=== PATIENT | male | born 1935 | race Caucasian/White ===

== ENCOUNTER 2017-04-29 17:54 | Emergency (ER) | payer MEDICARE, OTHER ==
[~2017-04-29] VITALS: Ht 182.9 cm; Wt 87.5 kg
[~2017-04-29 17:54] MED LIST: AMIODARONE HCL200 MG PO; ASPIR 8181 MG; ASPIR 8181 MG PO; ATORVASTATIN CA20 MG PO; DILANTIN50 MG PO; FUROSEMIDE40 MG PO; LISINOPRIL-HCT1 EAC2 PO; LISINOPRIL10 MG PO; METOPROLOL SUCC25 MG PO; METOPROLOL TART25 MG PO; MINOCYCLINE HCL50 MG PO; MIRTAZAPINE15 MG PO; MULTI-VITAMIN1 EACH PO; MULTIVITAMINS1 EAC7; PLAVIX75 MG PO; SERTRALINE HCL50 MG PO; TYLENOL WITH C1 EACH PO; WARFARIN SODIUM5 MG; XARELTO10 MG PO; XARELTO20 MG PO
--- NOTE | 2017-04-29 18:56 | Diagnostic Imaging Report ---
PROCEDURE:CT PELVIS WITHOUT CONTRAST COMPARISON:None. INDICATIONS:FALL, RIGHT HIP PAIN TECHNIQUE:CT images were created without intravenous contrast. FINDINGS: PELVIC NODES:Normal. PELVIC ORGANS:3.9 cm and 1.7 cm simple cyst in the inferior pole of the right kidney. Prostate measures 5.8 cm in transverse dimension. Mild atherosclerotic calcifications in abdominal aorta. Bilateral common iliac arteries are mildly enlarged measuring 1.9 cm on the right and 2.6 cm on the left. BONES:Diffuse osteopenia. Mild multilevel disc space narrowing. Moderate at L5-S1. Posterior disc osteophyte at L3-L4. Grade 1 anterolisthesis of L4 on L5 secondary to facet arthropathy. Mild degenerative changes in bilateral SI joints. OTHER:Unremarkable. CONCLUSION: No fractures. Degenerative changes as described above. Dictated by: El Tian M.D. on 04/29/2017 at 19:04 Electronically approved by: El Tian M.D. on 04/29/2017 at 19:04
[2017-04-29 22:50] LABS: BASOPHILS % 0.4 % (0.0-1.0); EOSINOPHILS # (AUTO) 0.2 (0.0-0.4); EOSINOPHILS % 4.2 % (0.0-6.0); HEMATOCRIT 36.2 % (38.2-49.6); HEMOGLOBIN 12.2 g/dL (14.0-18.0); LYMPHOCYTES # (AUTO) 1.8 (1.0-3.2); LYMPHOCYTES % 39.5 % (18.0-39.1); MEAN CORPUSCULAR HEMOGLOBIN 31.3 pg (28-32); MEAN CORPUSCULAR HGB CONC 33.7 g/dL (31-35); MEAN CORPUSCULAR VOLUME 92.8 fL (81-99); MONOCYTES # (AUTO) 0.5 (0.2-0.8); MONOCYTES % 10.1 % (4.4-11.3); NEUTROPHILS # (AUTO) 2.1 (2.1-6.9); NEUTROPHILS % 45.4 % (38.7-80.0); PLATELET COUNT 132 x10e3/uL (140-360); RED CELL DISTRIBUTION WIDTH 14.3 % (11.7-14.4)
[2017-04-29 22:57] LABS: INR 2.02; PROTHROMBIN TIME 23.9 seconds (11.9-14.5)
[2017-04-29 22:58] LABS: PARTIAL THROMBOPLASTIN TIME 39.8 seconds (23.8-35.5)
[2017-04-29 23:02] LABS: ANION GAP 14.1 mmol/L (8-16); CALCIUM 8.9 mg/dL (8.4-10.2); CREATININE, SERUM 1.54 mg/dL (0.72-1.25); POTASSIUM 4.1 mmol/L (3.5-5.1)
== END 2017-04-29 23:56 | disposition home or self-care (01) ==
LOC: ER 17:54
DX: S70.01XA Contusion of right hip, initial encounter (principal); W06.XXXA Fall from bed, initial encounter; Y93.84 Activity, sleeping; Y92.003 Bedroom of unspecified non-institutional (private) residence as the place of occurrence of the external cause
CPT/HCPCS: 36415; 72192; 80048; 85025; 85610; 85730; 99283

== ENCOUNTER → 2017-07-31 | Outpatient (CLI) | payer MEDICARE, OTHER ==
--- NOTE | 2017-07-31 17:12 | Diagnostic Imaging Report ---
PROCEDURE:X-RAY RIGHT FOOT, COMPLETE COMPARISON:None. INDICATIONS:FOOT PAIN FINDINGS: There are no fractures, dislocations, lytic or blastic lesions. The bones are well-mineralized. The soft-tissues are unremarkable. Hammertoe deformities. Hallux valgus deformity. CONCLUSION: Hammertoe deformities. Dictated by: El Tian M.D. on 07/31/2017 at 17:12 Electronically approved by: El Tian M.D. on 07/31/2017 at 17:12
--- NOTE | 2017-07-31 17:16 | Diagnostic Imaging Report ---
PROCEDURE:X-RAY RIGHT ANKLE, COMPLETE TECHNIQUE:3 views of the right ankle. INDICATION:Ankle pain. COMPARISON:None. FINDINGS: Diffuse soft tissue swelling of the right ankle. No fractures or dislocations. No joint effusion. CONCLUSION: Soft tissue swelling of the right ankle. No acute osseous abnormalities. Dictated by: El Tian M.D. on 07/31/2017 at 17:17 Electronically approved by: El Tian M.D. on 07/31/2017 at 17:17
== END ==
LOC: RAD 16:26
DX: M25.571 Pain in right ankle and joints of right foot (principal); Z87.828 Personal history of other (healed) physical injury and trauma
CPT/HCPCS: 93971

== ENCOUNTER → 2017-11-26 | Outpatient (CLI) | payer MEDICARE, OTHER ==
--- NOTE | 2017-11-26 12:32 | Diagnostic Imaging Report ---
PROCEDURE:US RETROPERITONEAL ( KIDNEY ). COMPARISON:Renal ultrasound 08/11/2014. INDICATIONS:Chronic Kidney Disease Stage 3 TECHNIQUE: Tracy-scale and color sonographic images of the bilateral kidneys and bladder where obtained in transverse and longitudinal planes. FINDINGS: RIGHT KIDNEY: 11 x 5.1 x 5.9 cm, cortex 1.2 cm Cysts: * Inferior pole 3.9 x 3.1 x 4 cm simple cyst (previously 3.9 x 3.1 x 3.5 cm) * Inferior pole 1.4 x 1.6 x 1.6 cm simple cyst (previously 1.3 x 1.2 x 1.2 cm) Solid masses: None Stones: None Hydronephrosis: None Echogenicity: Increased LEFT KIDNEY: 10.6 x 5.3 x 5.2 cm, cortex 1.5 cm Cysts: * Inferior pole 0.9 x 0.8-0.9 cm simple cyst. Solid masses: None Stones: None Hydronephrosis: None Echogenicity: Increased Bladder: Trabeculations. Prevoid volume: 228 cc Postvoid volume: 139 cc Prostate: 5 x 3.8 x 4.8 cm (47 cc), enlarged. CONCLUSION: 1. Increased renal echogenicity suggestive of medical renal disease. 2. Simple renal cysts as above. 3. Post-void residuals within the bladder. 4. Enlarged prostate. 1. Dictated by: Gurinder Cr M.D. on 11/26/2017 at 12:38 Electronically approved by: Gurinder Cr M.D. on 11/26/2017 at 12:38
--- NOTE | 2017-11-26 12:33 | Diagnostic Imaging Report ---
PROCEDURE:US PELVIC (NON OB) SALAZAR OR F/U COMPARISON:None. INDICATIONS:Chronic Kidney Disease Stage 3 TECHNIQUE: Grayscale transverse and sagittal transabdominal images were obtained of the pelvis. FINDINGS: Please see same day renal ultrasound report. CONCLUSION: Please see same day renal ultrasound report. Dictated by: Gurinder Cr M.D. on 11/26/2017 at 12:39 Electronically approved by: Gurinder Cr M.D. on 11/26/2017 at 12:39
== END ==
LOC: US 10:38
PROVIDERS: ATTEND Internal Medicine Nephrology
DX: N18.3 Chronic kidney disease, stage 3 (moderate) (principal)
CPT/HCPCS: 76770; 76857

== ENCOUNTER → 2017-12-05 | Outpatient (CLI) | payer MEDICARE, OTHER | LOC: RAD 09:42 | PROVIDERS: ATTEND Internal Medicine | DX: I82.890 Acute embolism and thrombosis of other specified veins (principal) | CPT/HCPCS: 93306 ==

== ENCOUNTER 2019-03-22 09:41 | Inpatient (IN) | payer MEDICARE, OTHER ==
[~2019-03-22] VITALS: Ht 182.9 cm; Wt 93.9 kg
--- OUTSIDE RECORDS SUMMARY | 2019-03-22 09:45 | XMS REPORT ---
Author [facility] Address Unknown Phone Unavailable Care Team Providers Care Flower Maker Name Role Phone DANIELLE CRUZ Unavailable Unavailable TERRA KOCH Unavailable Unavailable Florentin BASSETT Unavailable Unavailable Problems This patient has no known problems. Allergies, Adverse Reactions, Alerts This patient has no known allergies or adverse reactions. Medications This patient has no known medications. Results Test Description Test Time Test Comments Text Results Atomic Results Result Comments US PELVIC (NON OB) SALAZAR OR F/U 2017-11-26 12:39:00 [place] [address] Patient Name: EZIO LASSITER E MR #: [id number] : 1935 Age/Sex: 81/M Req #: [id number] Adm Physician: Ordered by: DANIELLE CRUZ MD Report #: [id number] Location: US Room/Bed: Procedure: [id number] US/US PELVIC (NON OB) SALAZAR OR F/U Exam Date: Exam Time: REPORT STATUS: Signed PROCEDURE: US PELVIC (NON OB) SALAZAR OR F/U COMPARISON: None. INDICATIONS: Chronic Kidney Disease Stage 3 TECHNIQUE: Grayscale transverse and sagittal transabdominal images were obtained of the pelvis. FINDINGS: Please see same day renal ultrasound report. CONCLUSION: Please see same day renal ultrasound report. Dictated by: Gurinder Emery M.D. on 11/26/2017 at 12:39 Electronically approved by: Gurinder Emery M.D. on 11/26/2017 at 12:39 Dictated By: GURINDER EMERY MD 123 Transcribed By: SUSHIL on 11/26/17 123 COPY TO: DANIELLE CRUZ MD RENAL RETROPERITONEAL COMP 2017-11-26 12:38:00 [place] [address] Patient Name: EZIO LASSITER MR #: [id number] : 1935 Age/Sex: 81/M Req #: [id number] Adm Physician: Ordered by: DANIELLE CRUZ MD Report #: [id number] Location: Room/Bed: Procedure: [id number] US/US RENAL RETROPERITONEAL COMP Exam Date: Exam Time: REPORT STATUS: Signed PROCEDURE: US RETROPERITONEAL ( KIDNEY ). COMPARISON: Renal ultrasound 08/11/2014. INDICATIONS: Chronic Kidney Disease Stage 3 TECHNIQUE: Tracy- scale and color sonographic images of the bilateral kidneys and bladder where obtained in transverse and longitudinal planes. FINDINGS: RIGHT KIDNEY: 11 x 5.1 x 5.9 cm, cortex 1.2 cm Cysts: * Inferior pole 3.9 x 3.1 x 4 cm simple cyst (previously 3.9 x 3.1 x 3.5 cm) * Inferior pole 1.4 x 1.6 x 1.6 cm simple cyst (previously 1.3 x 1.2 x 1.2 cm) Solid masses: None Stones: None Hydronephrosis: None Echogenicity: Increased LEFT KIDNEY: 10.6 x 5.3 x 5.2 cm, cortex 1.5 cm Cysts: * Inferior pole 0.9 x 0.8-0.9 cm simple cyst. Solid masses: None Stones: None Hydronephrosis: None Echogenicity: Increased Bladder: Trabeculations. Prevoid volume: 228 cc Postvoid volume: 139 cc Prostate: 5 x 3.8 x 4.8 cm (47 cc), enlarged. CONCLUSION: 1. Increased renal echogenicity suggestive of medical renal disease. 2. Simple renal cysts as above. 3. Post-void residuals within the bladder. 4. Enlarged prostate. 1. Dictated by: Gurinder Emery M.D. on 11/26/2017 at 12:38 Electronically approved by: Gurinder Emery M.D. on 11/26/2017 at 12:38 Dictated By: GURINDER EMERY MD 1238 Transcribed By: SUSHIL on 11/26/17 1238 COPY TO: DANIELLE CRUZ MD FOOT RIGHT COMPLETE [place] [address] Patient Name: EZIO LASSITER MR #: [id number] : 1935 Age/Sex: 81/M Req #: [id number] Adm Physician: Ordered by: TERRA KOCH MD Report #: [id number] Location: [facility] Room/Bed: Procedure: [id number] DX/FOOT RIGHT COMPLETE Exam Date: Exam Time: REPORT STATUS: Signed PROCEDURE: X-RAY RIGHT FOOT, COMPLETE COMPARISON: None. INDICATIONS: FOOT PAIN FINDINGS: There are no fractures, dislocations, lytic or blastic lesions. The bones are well-mineralized. The soft-tissues are unremarkable. Hammertoe deformities. Hallux valgus deformity. CONCLUSION: Hammertoe deformities. Dictated by: Hosea Chambers M.D. on 07/31/2017 at 17:12 Electronically approved by: Hosea Chambers M.D. on 07/31/2017 at 17:12 Dictated By: HOSEA CHAMBERS MD 11 Transcribed By: SUSHIL on 07/31/171711 COPY TO: TERRA KOCH MD ANKLE 3 + VIEWS RIGHT [facility] [address] [place] [address] Patient Name: EZIO LASSITER MR #: [id number] : 1935 Age/Sex: 81/M Req #: [id number] Adm Physician: Ordered by: TERRA KOCH MD Report #: [id number] Location: [facility] Room/Bed: Procedure: [id number] DX/ANKLE 3 + VIEWS RIGHT Exam Date: Exam Time: REPORT STATUS: Signed PROCEDURE: X-RAY RIGHT ANKLE, COMPLETE TECHNIQUE: 3 views of the right ankle. INDICATION: Ankle pain. COMPARISON: None. FINDINGS: Diffuse soft tissue swelling of the right ankle. No fractures or dislocations. No joint effusion. CONCLUSION: Soft tissue swelling of the right ankle. No acute osseous abnormalities. Dictated by: Hosea Chambers M.D. on 07/31/2017 at 17:17 Electronically approved by: Hosea Chambers M.D. on 07/31/2017 at 17:17 Dictated By: HOSEA CHAMBERS MD 16 Transcribed By: SUSHIL on 07/31/171716 COPY TO: TERRA KOCH MD CT PELVIS WO [facility] [address] [place] [address] Patient Name: EZIO LASSITER MR #: [id number] : 1935 Age/Sex: 81/M Req #: [id number] Adm Physician: Ordered by: SAADIA BASSETT MD Report #: [id number] Location: Room/Bed: Procedure: [id number] CT/CT PELVIS WO Exam Date: 04/29/17 Exam Time: 1834 REPORT STATUS: Signed PROCEDURE: CT PELVIS WITHOUT CONTRAST COMPARISON: None. INDICATIONS: FALL, RIGHT HIP PAIN TECHNIQUE: CT images were created without intravenous contrast. FINDINGS: PELVIC NODES: Normal. PELVIC ORGANS: 3.9 cm and 1.7 cm simple cyst in the inferior pole of the right kidney. Prostate measures 5.8 cm in transverse dimension. Mild atherosclerotic calcifications in abdominal aorta. Bilateral common iliac arteries are mildly enlarged measuring 1.9 cm on the right and 2.6 cm on the left. BONES: Diffuse osteopenia. Mild multilevel disc space narrowing. Moderate at L5-S1. Posterior disc osteophyte at L3-L4. Grade 1 anterolisthesis of L4 on L5 secondary to facet arthropathy. Mild degenerative changes in bilateral SI joints. OTHER: Unremarkable. CONCLUSION: No fractures. Degenerative changes as described above. Dictated by: Hosea Chambers M.D. on 04/29/2017 at 19:04 Electronically approved by: Hosea Chambers M.D. on 04/29/2017 at 19:04 Dictated By: HOSEA CHAMBERS MD 03 Transcribed By: SUSHIL on 04/29/171903 COPY TO: SAADIA BASSETT MD
[2019-03-22] MEDS ORDERED: SODIUM CHLORIDE 0.9% 1000ML 1,000 ML IV STA (09:56)
[2019-03-22] MEDS ORDERED: SODIUM CHLORIDE 0.9% 1000ML 500 ML IV STA (09:56)
[2019-03-22] MEDS ORDERED: FAMOTIDINE 20 MG/2 ML VIAL IV STA (09:56)
[2019-03-22] MEDS ORDERED: AZITHROMYCIN 500MG/SOD CHL 0.9% 250ML BAG IV SCH (10:15)
[2019-03-22] MEDS ORDERED: CEFTRIAXONE SOD 1 GM/NS 50 ML 50 ML IV ONE (10:15)
[2019-03-22] MEDS ORDERED: CEFTRIAXONE SOD 1 GRAM/0.9% SOD CHL 50ML BAG IV SCH (10:15)
[2019-03-22 10:30] LABS: BASOPHILS % 0.1 % (0.0-1.0); HEMATOCRIT 39.8 % (38.2-49.6); HEMOGLOBIN 13.5 g/dL (14.0-18.0); LYMPHOCYTES # (AUTO) 0.9 (1.0-3.2); LYMPHOCYTES % 5.2 % (18.0-39.1); MEAN CORPUSCULAR HGB CONC 33.9 g/dL (31-35); MEAN CORPUSCULAR VOLUME 91.5 fL (81-99); MONOCYTES # (AUTO) 0.7 (0.2-0.8); NEUTROPHILS # (AUTO) 14.9 (2.1-6.9); NEUTROPHILS % 88.7 % (38.7-80.0); PLATELET COUNT 155 x10e3/uL (140-360); RED BLOOD COUNT 4.35 x10e6/uL (4.3-5.7); RED CELL DISTRIBUTION WIDTH 14.8 % (11.7-14.4)
[2019-03-22 10:35] LABS: BILIRUBIN,URINE NEGATIVE (NEGATIVE); CLARITY,URINE CLEAR (CLEAR); COLOR,URINE YELLOW (YELLOW); KETONES,URINE TRACE (NEGATIVE); LEUKOCYTE ESTERASE ,URINE NEGATIVE (NEGATIVE); NITRITE,URINE NEGATIVE (NEGATIVE); PROTEIN,URINE DIPSTICK TRACE (NEGATIVE); URINE UROBILINOGEN 0.2 mg/dL (0.2 - 1)
[2019-03-22] MEDS: IPRATROPIUM BROMIDE 0.02% 2.5 ML NEB NEB SCH ×2 (10:40→20:30)
[2019-03-22 10:42] LABS: INR 2.92; PARTIAL THROMBOPLASTIN TIME 45.8 seconds (23.8-35.5); PROTHROMBIN TIME 31.2 seconds (11.9-14.5)
[2019-03-22 10:45] LABS: AMORPHOUS SEDIMENT,URINE RARE (FEW); BACTERIA,URINE MODERATE /HPF; EPITHELIAL CELLS,URINE FEW /LPF; HYALINE CASTS 0-1 (0-1); MUCUS,URINE FEW (RARE); RBC,URINE 0-5 /HPF (0-5)
[2019-03-22 10:49] LABS: ALBUMIN 3.4 g/dL (3.5-5.0); ANION GAP 15.6 mmol/L (8-16); CALCIUM 9.5 mg/dL (8.4-10.2); CREATININE, SERUM 2.21 mg/dL (0.72-1.25); MAGNESIUM 1.9 MG/DL (1.3-2.1); POTASSIUM 3.6 mmol/L (3.5-5.1)
[2019-03-22] MEDS: ALBUTEROL SULF 0.083% NEB SOLN 3 ML NEB NEB SCH ×2 (10:50→20:30)
--- NOTE | 2019-03-22 11:01 | Diagnostic Imaging Report ---
Chest, portable AP view History: Leg weakness Comparison: No comparisons available for review IMPRESSION: The heart is within normal limits of size. The aorta has a tortuous and ectatic appearance. Minimal bibasilar atelectasis is present. No focal consolidation, pleural effusion, or pneumothorax. Left subclavian pacemaker is in place. Signed by: Julien Mcduffie MD on 03/22/2019 10:58 AM
[2019-03-22 11:02] LABS: CREATINE KINASE MB 0.9 ng/mL (0-5.0)
[2019-03-22 11:09] LABS: THYROID STIMULATING HORMONE 0.377 uIU/mL (0.350-4.940)
--- NOTE | 2019-03-22 11:21 | Diagnostic Imaging Report ---
Exam: Head CT without contrast History: Weakness, difficulty walking, history of stroke with left-sided weakness, right side numbness. Comparison studies: Of 03/23 is unavailable on the PACS for comparison. Technique: Axial images were obtained from the skull base to the vertex. Coronal and sagittal images reconstructed from the axial data. Dose modulation, iterative reconstruction, and/or weight based adjustment of the mA/kV was utilized to reduce the radiation dose to as low as reasonably achievable. Radiation dose: Total DLP: 832 mGy*cm. Estimated effective dose: DLP x 0.015 Intravenous contrast: None Findings: Scalp: No abnormalities. Bones: No fractures, blastic or lytic lesions. Brain sulci: Mildly prominent. Ventricles: Mild compensatory dilatation. No hydrocephalus. Extra-axial spaces: No masses, no fluid collection. Parenchyma: Evaluation of the posterior fossa and inferior temporal lobes are limited by artifacts from the skull base. Right occipital hypodense infarct in the right OFFICER CAPTAIN territory along the right lingual gyrus is most likely subacute to chronic. Chronic left OFFICER CAPTAIN infarct encephalomalacia and gliosis in the left lingual and inferior occipital gyri extends along the occipitotemporal gyrus and involves the left hippocampus. Chronic lacunar infarcts are present in the head of the right caudate nucleus, left thalamus, left striatal-capsular region and right cerebellum. Chronic lacunar infarct in the dianne described on the prior brain MRI of 03/23/2012 is beyond resolution of CT. A few scattered hypodensities in the supratentorial white matter are nonspecific but are most compatible with chronic microvascular ischemic changes. Sellar/suprasellar region: No abnormalities. Craniocervical junction: Patent foramen magnum. No Chiari one malformation. Additional findings: Calcified atherosclerosis throughout the carotid siphons, intradural vertebral arteries with vertebral basilar dolichoectasia and ectatic carotid siphons IMPRESSION: 1. No acute intracranial abnormalities. 2. Subacute to chronic right OFFICER CAPTAIN infarct. 3. Chronic left OFFICER CAPTAIN infarct. 4. Mild chronic microvascular ischemic changes with chronic lacunar infarcts as described. 5. Mild generalized brain volume loss. Brain MRI may further evaluate the remains persistent concern for acute ischemia. Signed by: Dr. Jeevan Thompson M.D. on 03/22/2019 11:18 AM
[2019-03-22 12:04] LABS: ANISOCYTOSIS SLIGHT; LYMPHOCYTES % (MANUAL) 9 % (19-48); MONOCYTES % (MANUAL) 4 % (3.4-9.0); NEUTROPHILS % (MANUAL) 87 % (40-74); POIKILOCYTOSIS SLIGHT
[2019-03-22 12:05] LABS: BURR CELLS SLIGHT; OVALOCYTES FEW
[2019-03-22 12:07] LABS: PLATELET ESTIMATE ADEQUATE; PLATELET MORPHOLOGY COMMENT FEW LARGE; RBC MORPHOLOGY COMMENT ABNORMAL
[2019-03-22] MEDS: AZITHROMYCIN 500MG/NS 250 ML 250 ML IV SCH (15:16)
[2019-03-22] MEDS ORDERED: ACETAMINOPHEN/CODEINE 300MG - 30MG TAB PO PRN (17:15)
[2019-03-22] MEDS: FAMOTIDINE 20 MG/2 ML VIAL IV SCH (18:46)
[2019-03-22] MEDS: RIVAROXABAN 20 MG TABLET PO SCH (18:46)
[2019-03-22 20:21] LABS: CREATINE KINASE MB 1.9 ng/mL (0-5.0)
[2019-03-22] MEDS: SODIUM CHLORIDE 0.9% 1000ML 1,000 ML IV SCH ×2 (20:26→20:27)
[2019-03-22] MEDS ORDERED: LISINOPRIL 10 MG TAB PO SCH (21:00)
[2019-03-22] MEDS ORDERED: ATORVASTATIN 20 MG TAB PO SCH (21:00)
--- NOTE | 2019-03-22 21:00 | NUR ---
patient is a new admit that arrived via stretcher, patient is awake and talking. patient has been assisted into the bed. bed is in the lowest position and call pierre is within reach. will continue to monitor patient.
[2019-03-22 21:30] VITALS: BP 106/55
[2019-03-22 21:38] VITALS: BP 106/55
[2019-03-22 21:45] VITALS: BP 106/55
[2019-03-22] MEDS: MIRTAZAPINE 15 MG TAB PO SCH (22:16)
[2019-03-22] MEDS: MINOCYCLINE HCL 50 MG CAP PO SCH (22:16)
[2019-03-22] MEDS: ATORVASTATIN 40 MG TAB PO SCH (22:16)
[2019-03-23] VITALS (7 sets, daily range): BP systolic 95–116; BP diastolic 58–73
[2019-03-23 03:06] LABS: CREATINE KINASE MB 4.7 ng/mL (0-5.0)
[2019-03-23] MEDS: ALBUTEROL SULF 0.083% NEB SOLN 3 ML NEB NEB SCH ×6 (03:30→19:30)
[2019-03-23 06:02] LABS: BASOPHILS % 0.1 % (0.0-1.0); HEMATOCRIT 38.6 % (38.2-49.6); HEMOGLOBIN 13.2 g/dL (14.0-18.0); LYMPHOCYTES # (AUTO) 0.7 (1.0-3.2); LYMPHOCYTES % 4.6 % (18.0-39.1); MEAN CORPUSCULAR HEMOGLOBIN 31.3 pg (28-32); MEAN CORPUSCULAR HGB CONC 34.2 g/dL (31-35); MEAN CORPUSCULAR VOLUME 91.5 fL (81-99); MONOCYTES # (AUTO) 0.7 (0.2-0.8); MONOCYTES % 4.6 % (4.4-11.3); NEUTROPHILS # (AUTO) 12.5 (2.1-6.9); NEUTROPHILS % 87.9 % (38.7-80.0); PLATELET COUNT 136 x10e3/uL (140-360); RED BLOOD COUNT 4.22 x10e6/uL (4.3-5.7); RED CELL DISTRIBUTION WIDTH 15.4 % (11.7-14.4)
[2019-03-23 06:27] LABS: ALBUMIN 2.9 g/dL (3.5-5.0); ALBUMIN/GLOBULIN RATIO 0.8 (0.8-2.0); ANION GAP 14.4 mmol/L (8-16); CALCIUM 9.1 mg/dL (8.4-10.2); CREATININE, SERUM 2.09 mg/dL (0.72-1.25); POTASSIUM 3.4 mmol/L (3.5-5.1)
[2019-03-23 06:57] LABS: CREATINE KINASE MB 3.8 ng/mL (0-5.0)
--- NOTE | 2019-03-23 06:57 | NUR ---
report given to day nurse. patient is resting comfortably in bed. bed is in lowest position and call light is within reach.
[2019-03-23] MEDS: IPRATROPIUM BROMIDE 0.02% 2.5 ML NEB NEB SCH ×4 (07:18→19:30)
--- NOTE | 2019-03-23 07:30 | NUR ---
PT UP IN BED ,O2 4L NC IN PLACE,O2 SATS 91%,SOB ON EXERTION,
[2019-03-23] MEDS: ASPIRIN 81 MG CHEW TAB PO SCH (08:41)
[2019-03-23] MEDS: FUROSEMIDE 40 MG TAB PO SCH (08:41)
[2019-03-23] MEDS: MINOCYCLINE HCL 50 MG CAP PO SCH (08:42)
[2019-03-23] MEDS ORDERED: METOPROLOL TARTRATE 25 MG TAB PO SCH (09:00)
[2019-03-23] MEDS ORDERED: SERTRALINE HCL 50 MG TAB PO SCH (09:00)
[2019-03-23] MEDS ORDERED: RIVAROXABAN 10 MG TABLET PO SCH (09:00)
[2019-03-23] MEDS: FAMOTIDINE 20 MG/2 ML VIAL IV SCH ×2 (09:00→17:00)
--- NOTE | 2019-03-23 10:00 | NUR ---
RESP. PUT PT ON 9L HIGH KIMBERLY O2,SATS 95%,
[2019-03-23] MEDS: CEFTRIAXONE SOD 1 GM/NS 50 ML 50 ML IV SCH (10:30)
[2019-03-23] MEDS ORDERED: POTASSIUM CHLORIDE 20 MEQ TAB CR PO STA (11:16)
[2019-03-23] MEDS: AZITHROMYCIN 500MG/NS 250 ML 250 ML IV SCH (11:48)
--- NOTE | 2019-03-23 12:56 | Diagnostic Imaging Report ---
EXAM: CHEST 2 VIEWS DATE: 03/23/2019 5:00 AM INDICATION: Cough COMPARISON: 03/22/2019 IMPRESSION: Lung volumes are low limiting evaluation. There has been interval development of right basilar opacities which may reflect atelectasis. An underlying airspace process and/or small volume of pleural fluid is possible. The left lung is clear without evidence for focal consolidation, pneumothorax, or significant pleural effusion. The cardiomediastinal silhouette is stable in appearance. No acute osseous abnormalities identified. Signed by: Dr. Raffy Christian MD on 03/23/2019 12:53 PM
--- NOTE | 2019-03-23 15:10 | NUR ---
Visit made by the Spiritual Care Department Pastoral Visitor, Dania Gilliam. PV provided pastoral presence, hospitality, and supportive listening. Pastoral Visitor informed pt/family of the scope of [employer] and availability. UMER YO Technical Operations Specialist Spiritual Care Department O: [phone] Pager: [phone] ([phone] number calling from)
[2019-03-23] MEDS: RIVAROXABAN 20 MG TABLET PO SCH (17:00)
[2019-03-23] MEDS ORDERED: CYMBALTA30 MG PO (17:12)
[2019-03-23] MEDS ORDERED: LOSARTAN POTASS25 MG PO (17:12)
[2019-03-23] MEDS ORDERED: VITAMIN D32000 UNI2 PO (17:12)
[2019-03-23] MEDS ORDERED: FLOMAX0.4 MG PO (17:12)
[2019-03-23] MEDS ORDERED: CBD PO (17:12)
[2019-03-23] MEDS ORDERED: LORATADINE10 MG PO (17:12)
[2019-03-23] MEDS: DOCUSATE SODIUM 100 MG CAP PO SCH (17:47)
--- NOTE | 2019-03-23 18:21 | NUR ---
PT UP IN BED NO DISTRESS NOTED DENIES PAIN,O2 9L HIGH KIMBERLY
--- NOTE | 2019-03-23 19:11 | NUR ---
Received change of shift report from AM nurse. Walking rounds completed.
--- NOTE | 2019-03-23 19:13 | NUR ---
Received change of shift report from AM nurse. Walking rounds completed.
[2019-03-23] MEDS: METOPROLOL TARTRATE 25 MG TAB PO SCH (20:56)
[2019-03-23] MEDS: ATORVASTATIN 40 MG TAB PO SCH (20:56)
[2019-03-23] MEDS: MIRTAZAPINE 15 MG TAB PO SCH (20:57)
[2019-03-23] MEDS ORDERED: TAMSULOSIN HCL 0.4 MG CAP PO SCH (21:00)
--- NOTE | 2019-03-23 22:59 | Consultation ---
DATE OF CONSULTATION: 03/23/2019 Renal Consult. REASON FOR CONSULT: Acute on chronic kidney disease. HISTORY OF PRESENT ILLNESS: This is an 83-year-old male who has been having difficulty standing and walking, which started three days prior to admission. Currently, the patient is in bed, feeling slightly better, but remains severely weak. PAST MEDICAL HISTORY: Includes 1. CVA. 2. Chronic kidney disease stage 3. 3. Coronary artery disease. 4. Congestive heart failure. 5. Ascending aortic aneurysm. 6. Paroxysmal atrial fibrillation. 7. Frequent PVCs. 8. History of DVT. 9. History of PE. 10. Hypertension. 11. Residual right-sided weakness. ALLERGIES: NO KNOWN DRUG ALLERGIES. SOCIAL HISTORY: No smoking. No alcohol. No drugs. FAMILY HISTORY: Negative. PAST SURGICAL HISTORY: 1. Hernia repair. 2. Status post maker placement. REVIEW OF SYSTEMS: Positive weakness. Positive shortness of breath. No chest pain. No change in vision. No change in hearing. No sensory loss. No motor loss. No blood in the stool. Positive weakness. All review of system was done, only pertinent positive as above. PHYSICAL EXAMINATION: GENERAL: Alert, following commands. HEENT: Pupils are equal and reactive to light and accommodation. NECK: No JVD. No bruit. LUNGS: Rhonchi. No rales. HEART: Regular. No S3, no S4. ABDOMEN: Nontender and nondistended. No hepatomegaly or splenomegaly. EXTREMITIES: No clubbing, no cyanosis, no edema. NEUROLOGIC: Cranial nerves II through XII are grossly intact. Sensation intact. Motor intact. Severely weak. Blood pressure 105/64. CURRENT LABS: White count 14.1, hemoglobin 13.5, sodium 137, potassium 3.4, CO2 18, chloride 108, creatinine 2.09, BUN 38. Previous creatinine in April 2017 was 1.54. Urine culture preliminary no growth. Chest x-ray lung volumes are low limiting. Evaluation has been interval development of right basilar opacities, which may affect atelectasis. Underlying airspace process or small volume pleural fluid is possible. Left lung is clear. MEDICATION: Atrovent, albuterol, azithromycin, Rocephin, famotidine, minocycline, metoprolol, Lasix, aspirin, atorvastatin, Remeron, Xarelto, Prinivil, Colace. ASSESSMENT PLAN: 1. Acute on chronic kidney disease. The patient has baseline chronic kidney disease stage 3, currently with slightly worsening renal numbers. If the creatinine continues to be high, we will stop his DEL inhibitor. We will also check fractional excretion of sodium and we will also check urine eosinophils to rule out interstitial nephritis secondary to antibiotics. 2. Bronchitis and possible pneumonia currently on antibiotics. 3. Chronic kidney disease stage III, currently with a worsening number. 4. We will check the patient's chest x-ray BNP and a basic metabolic panel in a.m. We might need to stop his IV fluid, currently decreased to 40 mL an hour. The patient has congestive heart failure and he is on Lasix currently. 5. Obstructive uropathy has been ruled out. His bladder scan demonstrated 150 mL of urine. Aurelio Burnett MD MA/LINDSEY /[id number]
[2019-03-24] VITALS (10 sets, daily range): BP systolic 74–122; BP diastolic 47–68
[2019-03-24] MEDS: IPRATROPIUM BROMIDE 0.02% 2.5 ML NEB NEB SCH ×4 (00:15→20:10)
[2019-03-24] MEDS: ALBUTEROL SULF 0.083% NEB SOLN 3 ML NEB NEB SCH ×7 (00:15→23:00)
--- NOTE | 2019-03-24 01:05 | NUR ---
Dr Ortiz paged for patient with HR of 150. Per answering service attemp to call Md but not available. Rapid called. HR 150-160 temp 100.3 rectal BP 113/54 . Given 600mg of motrin and 0.50mg Dig. Continue monitor patient. at bedside.
[2019-03-24] MEDS ORDERED: IBUPROFEN 600 MG TAB PO STA (01:08)
[2019-03-24] MEDS ORDERED: IBUPROFEN 200 MG TAB ONE (01:09)
[2019-03-24] MEDS ORDERED: DIGOXIN INJ 0.25 MG/ML 2 ML AMP IV ONE (01:15)
--- NOTE | 2019-03-24 01:16 | NUR ---
New consult for Dr. Miramontes - Dr Babin spoke with Dr. Miramontes per telephone at this time
--- NOTE | 2019-03-24 04:46 | NUR ---
Patient resting quitly at this time. HR at 80-115. Temp at 99.8. Patient with no c/o at this time.
[2019-03-24 06:35] LABS: ANION GAP 11.6 mmol/L (8-16); CALCIUM 8.7 mg/dL (8.4-10.2); CREATININE, SERUM 2.07 mg/dL (0.72-1.25); POTASSIUM 3.6 mmol/L (3.5-5.1)
--- NOTE | 2019-03-24 07:21 | NUR ---
PATIENT IN BED WITH HEAD OF BED ELEVATED RECEIVING NEB TREATMENT, NO DISTRESS NOTED. O2 IN PLACE VIA HIGH FLOW N/C. IV FLUID INFUSING ORDERED. BED IN LOWER POSITION, CALL LIGHT AT REACH.
--- NOTE | 2019-03-24 07:58 | Diagnostic Imaging Report ---
Examination: Single AP view of the chest. COMPARISON: 03/23/2019 INDICATION: Pneumonia DISCUSSION: Interval improvement in aeration of the lungs relative to 03/23/2019. Stable position of left subclavian approach implantable cardiac device body and leads. Right basilar airspace opacities described on the comparison study have improved, with probable trace residual subsegmental atelectasis. No gross consolidation, pneumothorax, or sizable pleural effusion. Stable cardiomediastinal contour when accounting for differences in technique, positioning, and inspiratory effort, with a tortuous thoracic aorta. No overt pulmonary edema. No acute osseous abnormality. IMPRESSION: Improved aeration of the lungs relative to 03/23/2019. Interval improvement in right lower lung opacities, with trace residual subsegmental atelectasis. No new consolidations. Signed by: Dr. Jeevan Myers M.D. on 03/24/2019 7:55 AM
[2019-03-24] MEDS ORDERED: ACETAMINOPHEN 325 MG TAB PO PRN (08:45)
[2019-03-24] MEDS: FUROSEMIDE 40 MG TAB PO SCH (09:00)
[2019-03-24] MEDS: LORATADINE 10 MG TAB PO SCH (09:21)
[2019-03-24] MEDS: DOCUSATE SODIUM 100 MG CAP PO SCH ×2 (09:21→17:13)
[2019-03-24] MEDS: FAMOTIDINE 20 MG/2 ML VIAL IV SCH ×2 (09:21→17:13)
[2019-03-24] MEDS: ASPIRIN 81 MG CHEW TAB PO SCH (09:21)
[2019-03-24] MEDS: DULOXETINE HCL 30 MG DELAYED RELEASE PO SCH (09:21)
[2019-03-24] MEDS ORDERED: FUROSEMIDE INJ 10 MG/ML 4 ML VIAL IV ONE (09:30)
--- NOTE | 2019-03-24 10:10 | NUR ---
B/P AT THIS TIME IS 158/99. IV LASIX GIVEN ORDERED.
[2019-03-24] MEDS: CEFTRIAXONE SOD 1 GM/NS 50 ML 50 ML IV SCH (10:24)
--- NOTE | 2019-03-24 11:17 | Consultation ---
DATE OF CONSULTATION: 03/23/2019 Pulmonary Medicine Consult REASON FOR REFERRAL: COPD. HISTORY OF PRESENT ILLNESS: Mr. Dalton is a pleasant 83-year-old gentleman with shortness of breath. The patient was in usual state of health until worsened breathing condition. The patient had no airway congestion. Some increased phlegm. It was a pattern of worsening. He had evaluation in the hospital. Moving his shortness of breath. He was admitted. The patient not on home oxygen. No history of allergies. No asthma. No GERD. Uses albuterol nebulized intermittently. Exercise tolerance allows him to walk one-half block without stopping, limited by shortness of breath. He does use a walker for mobilization. PAST MEDICAL HISTORY: Coronary artery disease, systolic heart failure, paroxysmal atrial fibrillation, history of pacemaker, history of DVT and PE, hypertension, CVA and residual right-sided weakness. MEDICATIONS: Medication list reviewed per the chart record. ALLERGIES: NO KNOWN DRUG ALLERGIES. SOCIAL HISTORY: No smoking. No drinking. No drugs. 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 FAMILY HISTORY: Noncontributory. REVIEW OF SYSTEMS: GENERAL: No weight changes. OPHTHALMOLOGIC: No floaters. ENT: No mouth ulcers. PULMONARY: No hemoptysis. CARDIAC: No recent heart attacks. GI: No diarrhea. : No blood in urine. DERMATOLOGIC: No rash. MUSCULOSKELETAL: Mild arthritis. NEUROLOGIC: No seizures. PHYSICAL EXAMINATION: VITAL SIGNS: Afebrile, vital signs noted and reviewed per the chart record. The patient on 8 L/minute of oxygen with saturation 92%. GENERAL: In no acute distress, alert and calm. HEENT: Normocephalic and atraumatic. NECK: Supple. Throat midline. LUNGS: Bilateral air entry is moderate, few rhonchi noted. CARDIOVASCULAR: S1 and S2. No murmurs, rubs, or gallops. ABDOMEN: Soft and nontender. EXTREMITIES: No clubbing. No cyanosis. There is no edema. INTEGUMENT: No rash. No purpura. LABORATORY DATA: 15 white count, 40 hematocrit, and 155 platelets. 38 BUN and creatinine 2.21. Albumin was 2.9. BNP level 278. INR 2.92. Chest x-ray with bibasilar opacity. IMPRESSION AND PLAN: 1. Pneumonia. 2. Hypoxemia, under evaluation. 3. Mild debility/weakness. 4. History of coronary artery disease and systolic heart failure. 5. History of deep venous thrombosis and pulmonary embolism. 6. Hypertension. 7. History of cerebrovascular accident with mild right-sided weakness. Repeat morning chest x-ray. Keep the patient slightly dry. Supplement oxygen by protocol. Antibiotics. Bronchodilators. Aggressive PT and OT with best supportive care. Thank you very much, Dr. Ortiz, for this consult. Please call for questions. MD JULIANNE Campos/LINDSEY /[id number]
[2019-03-24] MEDS: AZITHROMYCIN 500MG/NS 250 ML 250 ML IV SCH (11:38)
--- NOTE | 2019-03-24 15:00 | NUR ---
PATIENT NOTED WITH B/P OF 86/49 PER DINAMAP. B/P RECHECKED MANUALLY WITH THE READING OF 96/54. MD NOTIFIED, NO NEW ORDER RECEIVED. WILL CLOSELY MONITOR.
[2019-03-24] MEDS: RIVAROXABAN 10 MG TABLET PO SCH (17:13)
[2019-03-24 17:56] LABS: ANION GAP 14.4 mmol/L (8-16); CALCIUM 8.4 mg/dL (8.4-10.2); CREATININE, SERUM 2.33 mg/dL (0.72-1.25); POTASSIUM 3.4 mmol/L (3.5-5.1)
[2019-03-24] MEDS ORDERED: POTASSIUM CHLORIDE 20 MEQ TAB CR PO ONE (18:28)
[2019-03-24] MEDS ORDERED: AMIODARONE HCL 900 MG in DEXTROSE 5% 500ML 500 ML IV SCH (18:30)
[2019-03-24] MEDS ORDERED: AMIODARONE HCL 150MG 100 ML IV ONE (18:30)
--- NOTE | 2019-03-24 18:31 | NUR ---
CALL RECEIVED FROM TELEMETRY STAFF STATING THAT PATIENT HR IS 130-150. UPON ASSESSMENT PATIENT IN BED WITH HEAD OF BED ELEVATED. HR BETWEEN 125 AND 148, B/P OF 65/50 WITH DINAMAP AND 80/52 MANUALLY. MD NOTIFIED, NEW ORDERS FROM MD. PATIENT TO BE TRANSFERRED TO [facility] FOR AMIODARONE DRIP.
[2019-03-24] MEDS ORDERED: AMIODARONE HCL 150 MG in DEXTROSE 5% 100ML 100 ML IV ONE (19:00)
[2019-03-24] MEDS ORDERED: AMIODARONE HCL 900 MG in DEXTROSE 5 % 500ML BOTTLE 500 ML IV ONE (19:00)
[2019-03-24] MEDS: METOPROLOL TARTRATE 25 MG TAB PO SCH (21:00)
[2019-03-24] MEDS: MIRTAZAPINE 15 MG TAB PO SCH (21:00)
--- NOTE | 2019-03-24 21:10 | NUR ---
bp rechecked 88/60 mmhg
[2019-03-24] MEDS: ATORVASTATIN 40 MG TAB PO SCH (21:19)
--- NOTE | 2019-03-24 23:00 | NUR ---
Pulmonary Medicine DATE OF CONSULTATION: 03/24/2019 SUBJECTIVE: EATS > 50% moderate assist up 4 L/min oxygen 81% saturation noted intermittently REVIEW OF SYSTEMS: no seizures, no headaches PHYSICAL EXAMINATION: VITAL SIGNS: vital signs noted and reviewed per the chart record. GENERAL: no acute distress, alert and calm. Appears weak HEENT: Normocephalic, atraumatic. NECK: Supple. Throat midline. LUNGS: Bilateral air entry is moderate, few rhonchi noted. CARDIOVASCULAR: S1 and S2. No murmurs, rubs, or gallops. ABDOMEN: Soft and nontender. EXTREMITIES: No clubbing. No cyanosis. no edema. INTEGUMENT: No rash. No purpura. LABORATORY DATA: per EMR, cr 2.07. hco3 17, k 3.6 IMPRESSION AND PLAN: 1. Pneumonia. 2. Hypoxemia, under evaluation. 3. Debility/weakness. 4. Hx of coronary artery disease 5. acute/chronic systolic heart failure. 5. Hx deep venous thrombosis and pulmonary embolism. 6. Hypertension. 7. Hx CVA with right hemiparesis Repeat intermittent chest x-ray. Keep the patient slightly dry with diuretics Supplement oxygen, wean as tolerated Antibiotics. Bronchodilators Aggressive PT and OT with best supportive care. Thank you very much, Dr. Ortiz, for this consult. Please call for questions.
[2019-03-25] VITALS (9 sets, daily range): BP systolic 80–128; BP diastolic 62–112
[2019-03-25] MEDS ORDERED: AMIODARONE 900MG 500 ML IV ONE (01:30)
--- NOTE | 2019-03-25 01:53 | Consultation ---
DATE OF CONSULTATION: 03/24/2019 Cardiology Consultation REASON FOR CONSULTATION: Atrial fibrillation. HISTORY OF PRESENT ILLNESS: This is an 83-year-old man with a history of congestive heart failure, paroxysmal atrial fibrillation, premature ventricular complexes, coronary artery disease, chronic kidney disease, prior cerebrovascular accident, presence of a permanent pacemaker, who presented to the emergency department with weakness, failure to thrive and shortness of breath. The patient's symptoms started approximately 3-4 days ago and constantly worsening associated with severe generalized weakness, moderate intensity, shortness of breath. The patient was found to have pneumonia and was started on antibiotic therapies. The patient has had intermittent atrial fibrillation runs with rapid ventricular response, which prompted our consultation. The patient is very lethargic today and per daughter, has not eaten. The patient states that he is very weak. REVIEW OF SYSTEMS: Unable to be obtained due to slightly altered mental status. PAST MEDICAL HISTORY: As stated above. PAST SURGICAL HISTORY: Pacemaker implantation. PAST FAMILY HISTORY: Noncontributory. SOCIAL HISTORY: No illicit drug, alcohol, or tobacco use. ALLERGIES: NO KNOWN DRUG ALLERGIES. MEDICATIONS: See medications reconciliation form. PHYSICAL EXAMINATION: VITAL SIGNS: Temperature is 97.5, heart rate is ranging from 102 to 124, respirations are 22, blood pressure is 196/54, O2 saturation is 95% on 6 L of nasal cannula. GENERAL: He is an elderly man, lying comfortably in bed, in no apparent distress. HEAD: Normocephalic, atraumatic. EYES: Extraocular muscles intact. Conjunctivae clear. NECK: No JVD. CARDIOVASCULAR: Irregularly irregular. Tachycardic. Systolic murmur at the left sternal border. LUNGS: Scattered rhonchi. Diminished breath sounds at bases. ABDOMEN: Soft, nontender, nondistended. EXTREMITIES: No edema. NEUROLOGIC: No focal deficits. However, he is lethargic. LABORATORY DATA: Reviewed. White blood cell count is 14, hemoglobin is 13, creatinine is 2.33, and potassium is 3.4. Troponins negative x4. IMPRESSION: 1. Pneumonia. 2. Sepsis. 3. Atrial fibrillation with rapid ventricular response. 4. History of premature ventricular complexes. 5. History of pacemaker implantation. 6. Coronary artery disease. 7. Congestive heart failure, [id number]. RECOMMENDATIONS: Please correct electrolyte levels. His Xarelto has been decreased to 10 mg due to acute kidney injury. We will start amiodarone infusion for better rate control. Continue metoprolol if his blood pressure is able to tolerate. Continue antibiotic therapies per primary team. DO YIN Hairston/LINDSEY /[id number]
[2019-03-25] MEDS: ALBUTEROL SULF 0.083% NEB SOLN 3 ML NEB NEB SCH ×3 (02:30→11:00)
[2019-03-25] MEDS: IPRATROPIUM BROMIDE 0.02% 2.5 ML NEB NEB SCH ×4 (02:30→23:05)
[2019-03-25 05:35] LABS: BASOPHILS % 0.3 % (0.0-1.0); EOSINOPHILS # (AUTO) 0.1 (0.0-0.4); EOSINOPHILS % 0.6 % (0.0-6.0); HEMATOCRIT 34.5 % (38.2-49.6); HEMOGLOBIN 11.7 g/dL (14.0-18.0); LYMPHOCYTES # (AUTO) 0.6 (1.0-3.2); LYMPHOCYTES % 5.6 % (18.0-39.1); MEAN CORPUSCULAR HEMOGLOBIN 30.7 pg (28-32); MEAN CORPUSCULAR HGB CONC 33.9 g/dL (31-35); MEAN CORPUSCULAR VOLUME 90.6 fL (81-99); MONOCYTES # (AUTO) 0.7 (0.2-0.8); MONOCYTES % 6.6 % (4.4-11.3); NEUTROPHILS # (AUTO) 9.4 (2.1-6.9); NEUTROPHILS % 86.3 % (38.7-80.0); PLATELET COUNT 136 x10e3/uL (140-360); RED BLOOD COUNT 3.81 x10e6/uL (4.3-5.7); RED CELL DISTRIBUTION WIDTH 15.6 % (11.7-14.4)
[2019-03-25 05:57] LABS: ALBUMIN 2.3 g/dL (3.5-5.0); ALBUMIN/GLOBULIN RATIO 0.7 (0.8-2.0); ANION GAP 14.8 mmol/L (8-16); CALCIUM 8.7 mg/dL (8.4-10.2); CREATININE, SERUM 2.75 mg/dL (0.72-1.25); POTASSIUM 3.8 mmol/L (3.5-5.1)
--- NOTE | 2019-03-25 08:07 | NUR ---
Pt transferred from [facility] to [facility] for higher level of care. Pt will be placed on PT hold; will need new PT orders to resume skilled PT when appropriate. Thank you. Addendum: 03/25/19 at 0809 by YAIR MONTEIRO PTA Amended: Links added.
[2019-03-25] MEDS: DOCUSATE SODIUM 100 MG CAP PO SCH ×2 (08:49→17:07)
[2019-03-25] MEDS: FAMOTIDINE 20 MG/2 ML VIAL IV SCH (08:49)
[2019-03-25] MEDS: ASPIRIN 81 MG CHEW TAB PO SCH (08:49)
[2019-03-25] MEDS: DULOXETINE HCL 30 MG DELAYED RELEASE PO SCH (08:49)
[2019-03-25] MEDS: LORATADINE 10 MG TAB PO SCH (08:49)
[2019-03-25] MEDS: FUROSEMIDE 40 MG TAB PO SCH (08:49)
[2019-03-25] MEDS ORDERED: DIGOXIN INJ 0.25 MG/ML 2 ML AMP IV ONE (10:00)
[2019-03-25] MEDS: CEFTRIAXONE SOD 1 GM/NS 50 ML 50 ML IV SCH (11:10)
[2019-03-25] MEDS: AZITHROMYCIN 500MG/NS 250 ML 250 ML IV SCH (11:32)
--- NOTE | 2019-03-25 11:51 | NUR ---
Pulmonary Medicine DATE OF CONSULTATION: 03/25/2019 SUBJECTIVE: eatins well complicating afib with rvr amiodarone iv on walked 25 feet per patient yesterday REVIEW OF SYSTEMS: no seizures, no headaches PHYSICAL EXAMINATION: VITAL SIGNS: vital signs noted and reviewed per the chart record. GENERAL: no acute distress, alert and calm. Appears weak HEENT: Normocephalic, atraumatic. NECK: Supple. Throat midline. LUNGS: Bilateral air entry is moderate, few rhonchi noted. CARDIOVASCULAR: S1 and S2. No murmurs, rubs, or gallops. ABDOMEN: Soft and nontender. EXTREMITIES: No clubbing. No cyanosis. no edema. INTEGUMENT: No rash. No purpura. LABORATORY DATA: 2.75 cr, 18 hco3, 11 wbc, hct 35, plt 136 IMPRESSION AND PLAN: 1. Pneumonia. 2. Hypoxemia, under evaluation. 3. Debility/weakness. 4. Hx of coronary artery disease 5. acute/chronic systolic heart failure. 5. Hx deep venous thrombosis and pulmonary embolism. 6. Hypertension. 7. Hx CVA with right hemiparesis Repeat intermittent chest x-ray. Keep the patient slightly dry with diuretics Supplement oxygen, wean as tolerated Antibiotics. Bronchodilators prn Aggressive PT and OT resume when RVR is controlled Thank you very much, Dr. Ortiz, for this consult. Please call for questions.
[2019-03-25] MEDS ORDERED: MAGNESIUM HYDROXIDE 30 ML UDC PO ONE (16:45)
[2019-03-25] MEDS ORDERED: BISACODYL 5 MG TAB EC PO ONE (16:45)
[2019-03-25] MEDS: RIVAROXABAN 10 MG TABLET PO SCH (17:07)
[2019-03-25] MEDS: METOPROLOL TARTRATE 25 MG TAB PO SCH (20:23)
[2019-03-25] MEDS: MIRTAZAPINE 15 MG TAB PO SCH (20:23)
[2019-03-25] MEDS: ATORVASTATIN 40 MG TAB PO SCH (20:23)
--- NOTE | 2019-03-25 20:31 | Progress Note ---
DATE: 03/25/2019 Cardiology Progress Note SUBJECTIVE: The patient found sleeping comfortably. No apparent distress reported. No chest pain. OBJECTIVE: VITAL SIGNS: Temperature is 98.9, heart rate is 124, respirations are 20, blood pressure is 96/68, and oxygen saturation is 99% on 6 L nasal cannula. GENERAL: He is a chronically ill-appearing elderly male, lying comfortably in bed. CARDIOVASCULAR: Irregularly irregular, tachycardic. No murmurs. LUNGS: Diminished breath sounds at bases. ABDOMEN: Soft, nontender, nondistended. EXTREMITIES: Trace edema. CARDIOVASCULAR MEDICATIONS: Reviewed. LABORATORY DATA: Hemoglobin is 11, white blood cell count is 10. Creatinine is 2.75, potassium is 3.8. Telemetry monitoring revealed atrial fibrillation with rapid ventricular response. IMPRESSION: 1. Atrial fibrillation with rapid ventricular response. 2. Pneumonia. 3. Sepsis. 4. Premature ventricular complexes. 5. History of pacemaker implantation. 6. Coronary artery disease. 7. Acute on chronic systolic congestive heart failure. RECOMMENDATIONS: Continue amiodarone infusion. We will give a dose of IV digoxin today for better rate control. The patient's blood pressure will likely not tolerate oral beta blockers. Continue Xarelto and replacement of electrolytes. If the patient remains with a rapid ventricular response, may need to consider SEAN with cardioversion. DO YIN Hairston/MODL /[id number]
[2019-03-26] VITALS (7 sets, daily range): BP systolic 91–133; BP diastolic 61–89
[2019-03-26 05:22] LABS: BASOPHILS % 0.2 % (0.0-1.0); EOSINOPHILS % 0.3 % (0.0-6.0); HEMATOCRIT 35.1 % (38.2-49.6); HEMOGLOBIN 12.4 g/dL (14.0-18.0); LYMPHOCYTES # (AUTO) 0.6 (1.0-3.2); LYMPHOCYTES % 5.5 % (18.0-39.1); MEAN CORPUSCULAR HEMOGLOBIN 31.2 pg (28-32); MEAN CORPUSCULAR HGB CONC 35.3 g/dL (31-35); MEAN CORPUSCULAR VOLUME 88.4 fL (81-99); MONOCYTES # (AUTO) 0.8 (0.2-0.8); MONOCYTES % 6.9 % (4.4-11.3); NEUTROPHILS # (AUTO) 9.9 (2.1-6.9); NEUTROPHILS % 85.2 % (38.7-80.0); PLATELET COUNT 171 x10e3/uL (140-360); RED BLOOD COUNT 3.97 x10e6/uL (4.3-5.7); RED CELL DISTRIBUTION WIDTH 15.7 % (11.7-14.4)
[2019-03-26 05:43] LABS: ALBUMIN 2.1 g/dL (3.5-5.0); ALBUMIN/GLOBULIN RATIO 0.6 (0.8-2.0); ANION GAP 14.8 mmol/L (8-16); CALCIUM 9.2 mg/dL (8.4-10.2); CREATININE, SERUM 2.63 mg/dL (0.72-1.25); POTASSIUM 3.8 mmol/L (3.5-5.1)
--- NOTE | 2019-03-26 07:00 | NUR ---
Pt received resting in bed. Alert and oriented x2 with periods of forgetfulness. Oriented to staff and surroundings. Encouraged to press call pierre if help needed. Emotional support given. Call pierre within reach. Will monitor
[2019-03-26] MEDS: IPRATROPIUM BROMIDE 0.02% 2.5 ML NEB NEB SCH ×3 (07:05→23:39)
[2019-03-26] MEDS: DOCUSATE SODIUM 100 MG CAP PO SCH ×2 (08:45→12:34)
[2019-03-26] MEDS: ASPIRIN 81 MG CHEW TAB PO SCH (08:45)
[2019-03-26] MEDS: LORATADINE 10 MG TAB PO SCH (08:45)
[2019-03-26] MEDS: FUROSEMIDE 40 MG TAB PO SCH (08:45)
[2019-03-26] MEDS: FAMOTIDINE 20 MG/2 ML VIAL IV SCH (08:45)
[2019-03-26] MEDS: DULOXETINE HCL 30 MG DELAYED RELEASE PO SCH (08:45)
[2019-03-26] MEDS: CEFEPIME 1GM/NS 0.9% 50 ML 50 ML IV SCH (09:32)
[2019-03-26] MEDS: VANCOMYCIN 1GM/NS 250 ML 250 ML IV SCH (09:32)
[2019-03-26] MEDS: AMIODARONE HCL 200 MG TAB PO SCH ×2 (09:32→17:45)
[2019-03-26] MEDS ORDERED: FUROSEMIDE INJ 10 MG/ML 4 ML VIAL IV ONE (09:50)
--- NOTE | 2019-03-26 11:40 | NUR ---
Care provided. Pt had second bowel movement. Assisted into chair. Pt will have lunch in chair
[2019-03-26] MEDS ORDERED: FUROSEMIDE INJ 10 MG/ML 2 ML VIAL IV ONE (12:00)
--- NOTE | 2019-03-26 12:10 | NUR ---
pt did not have rajan catheter to d/c per MD order. pt had condom cath w/rajan bag on side of bed.
--- NOTE | 2019-03-26 12:57 | NUR ---
ON 03/23 ORDERS FOR LTAC CHOICE LETTER SIGNED MOT INITIATED AND PLACED ON CHART FLORI WITH [facility] NOTIFIED OF CONSULT STILL PENDING INSURANCE TODAY 03/26
--- NOTE | 2019-03-26 17:35 | NUR ---
Care provided with assistance of daughter. Emotional support given. Fall precautions maintained. Will monitor
[2019-03-26] MEDS: RIVAROXABAN 10 MG TABLET PO SCH (17:45)
--- NOTE | 2019-03-26 18:54 | Progress Note ---
DATE: 03/26/2019 Cardiology Progress Note SUBJECTIVE: The patient was mildly delirious. Reports mild improvement in his respiratory status. OBJECTIVE: VITAL SIGNS: Temperature is 98.2, heart rate is ranging from 86 to 108, respirations are 20, blood pressure is 91/65, however, has been as high as 133/89, and oxygen saturation is 98% on 6 L nasal cannula. GENERAL: He is an elderly man, lying comfortably in bed, no apparent distress. CARDIOVASCULAR: Irregularly irregular with times of tachycardia. LUNGS: Decreased breath sounds at bases. ABDOMEN: Soft, nontender, and nondistended. EXTREMITIES: Trace edema. LABORATORY DATA: Reviewed. Hemoglobin is 12 and white blood cell count is 11. Creatinine is 2.6, improved down from 2.7. Telemetry monitoring revealed atrial fibrillation with rapid ventricular response. IMPRESSION: 1. Atrial fibrillation with rapid ventricular response. 2. Pneumonia. 3. Sepsis. 4. Pacemaker. 5. Coronary artery disease. 6. Acute on chronic systolic congestive heart failure. RECOMMENDATIONS: Continue amiodarone p.o. b.i.d. His digoxin was given yesterday for better rate control. If the patient's blood pressure can tolerate, we can increase his metoprolol to b.i.d. dosing. Continue Xarelto. Continue to monitor creatinine and urinary output. We will continue to monitor on telemetry. DO YIN Hairston/JOSEL /[id number]
--- NOTE | 2019-03-26 19:30 | NUR ---
Received patient agitated and trying to get out of bed, relatives at the bedside. vitals stable
[2019-03-26] MEDS: MIRTAZAPINE 15 MG TAB PO SCH (20:50)
[2019-03-26] MEDS: ATORVASTATIN 40 MG TAB PO SCH (20:50)
[2019-03-26] MEDS: BALSAM PERU/CASTOR OIL 60 GM OINT...G. TP SCH (21:00)
[2019-03-26] MEDS: METOPROLOL TARTRATE 25 MG TAB PO SCH (21:00)
[2019-03-27] VITALS (8 sets, daily range): BP systolic 90–145; BP diastolic 61–88
--- NOTE | 2019-03-27 01:00 | NUR ---
Patient incontinent of urine, condom catheter inserted, patient reassured.
[2019-03-27 04:21] LABS: SODIUM,URINE 72 mmol/L; TOTAL PROTEIN, URINE 13.6 mg/dL (1-14)
[2019-03-27 04:40] LABS: EOSINOPHIL SMEAR,URINE NONE SEEN (NONE SEEN)
--- NOTE | 2019-03-27 04:51 | NUR ---
Pulmonary Medicine DATE OF CONSULTATION: 03/26/2019 SUBJECTIVE: afib rate controlled didnt walk yesterday weak remains on oxygen by MS REVIEW OF SYSTEMS: no seizures, no headaches PHYSICAL EXAMINATION: VITAL SIGNS: vital signs noted and reviewed per the chart record. GENERAL: no acute distress, alert and calm. Appears weak HEENT: Normocephalic, atraumatic. NECK: Supple. Throat midline. LUNGS: Bilateral air entry is moderate, few rhonchi noted. CARDIOVASCULAR: S1 and S2. No murmurs, rubs, or gallops. ABDOMEN: Soft and nontender. EXTREMITIES: No clubbing. No cyanosis. no edema. INTEGUMENT: No rash. No purpura. LABORATORY DATA: cr 2.6, k 3.8 IMPRESSION AND PLAN: 1. Pneumonia. 2. Hypoxemia, under evaluation. 3. Debility/weakness. 4. Hx of coronary artery disease 5. acute/chronic systolic heart failure. 5. Hx deep venous thrombosis and pulmonary embolism. 6. Hypertension. 7. Hx CVA with right hemiparesis Repeat intermittent chest x-ray. Keep the patient slightly dry with diuretics Supplement oxygen, wean as tolerated Antibiotics. Bronchodilators prn cardiac control Aggressive PT and OT resume Thank you very much, Dr. Ortiz, for this consult. Please call for questions.
[2019-03-27 05:19] LABS: BASOPHILS % 0.2 % (0.0-1.0); EOSINOPHILS # (AUTO) 0.2 (0.0-0.4); EOSINOPHILS % 2.3 % (0.0-6.0); HEMATOCRIT 34.6 % (38.2-49.6); HEMOGLOBIN 12.2 g/dL (14.0-18.0); LYMPHOCYTES # (AUTO) 0.9 (1.0-3.2); MEAN CORPUSCULAR HEMOGLOBIN 31.3 pg (28-32); MEAN CORPUSCULAR HGB CONC 35.3 g/dL (31-35); MEAN CORPUSCULAR VOLUME 88.7 fL (81-99); MONOCYTES # (AUTO) 0.7 (0.2-0.8); MONOCYTES % 6.8 % (4.4-11.3); NEUTROPHILS # (AUTO) 8.1 (2.1-6.9); NEUTROPHILS % 79.8 % (38.7-80.0); PLATELET COUNT 215 x10e3/uL (140-360); RED CELL DISTRIBUTION WIDTH 16.1 % (11.7-14.4)
[2019-03-27 05:49] LABS: ALBUMIN 2.1 g/dL (3.5-5.0); ALBUMIN/GLOBULIN RATIO 0.6 (0.8-2.0); ANION GAP 15.6 mmol/L (8-16); CALCIUM 9.4 mg/dL (8.4-10.2); CREATININE, SERUM 2.76 mg/dL (0.72-1.25); POTASSIUM 3.6 mmol/L (3.5-5.1)
--- NOTE | 2019-03-27 06:00 | NUR ---
Patient cleaned, condom catheter changed, vitals stable, sleeping calmly in bed
[2019-03-27] MEDS: IPRATROPIUM BROMIDE 0.02% 2.5 ML NEB NEB SCH ×3 (06:47→19:49)
--- NOTE | 2019-03-27 07:07 | NUR ---
handed over calm and stable
[2019-03-27] MEDS: DOCUSATE SODIUM 100 MG CAP PO SCH ×2 (08:23→16:35)
[2019-03-27] MEDS: DULOXETINE HCL 30 MG DELAYED RELEASE PO SCH (08:23)
[2019-03-27] MEDS: FAMOTIDINE 20 MG/2 ML VIAL IV SCH (08:23)
[2019-03-27] MEDS: FUROSEMIDE 40 MG TAB PO SCH (08:23)
[2019-03-27] MEDS: ASPIRIN 81 MG CHEW TAB PO SCH (08:23)
[2019-03-27] MEDS: LORATADINE 10 MG TAB PO SCH (08:23)
[2019-03-27] MEDS: AMIODARONE HCL 200 MG TAB PO SCH (08:23)
[2019-03-27] MEDS: CEFEPIME 1GM/NS 0.9% 50 ML 50 ML IV SCH (08:24)
--- NOTE | 2019-03-27 08:28 | Diagnostic Imaging Report ---
Examination: Single AP view of the chest. COMPARISON: Chest radiograph 03/24/2019. INDICATION: Pneumonia and CHF. DISCUSSION: Stable left-sided pacemaker. Low lung volumes. Persistent patchy bibasilar opacities. Central vascular congestion without evidence of pulmonary edema. No new consolidation. No evidence of pleural effusion or pneumothorax. The cardiac mediastinal silhouette is unchanged with tortuous thoracic aorta. No acute osseous abnormality. IMPRESSION: Low lung volumes with patchy bibasilar opacities, which may represent atelectasis or aspiration in the appropriate clinical setting. No new consolidation. Signed by: Dr. Km Perla MD on 03/27/2019 8:25 AM
[2019-03-27] MEDS: VANCOMYCIN 1GM/NS 250 ML 250 ML IV SCH (10:37)
--- NOTE | 2019-03-27 10:58 | NUR ---
Pulmonary Medicine DATE OF CONSULTATION: 03/27/2019 SUBJECTIVE: 4 L/min oxygen he was confused during the night slept only half the night so far today he is not eating-- sleeping instead REVIEW OF SYSTEMS: no seizures, no headaches PHYSICAL EXAMINATION: VITAL SIGNS: vital signs noted and reviewed per the chart record. GENERAL: no acute distress, alert and calm. Appears weak HEENT: Normocephalic, atraumatic. NECK: Supple. Throat midline. LUNGS: Bilateral air entry is moderate, few rhonchi noted. CARDIOVASCULAR: S1 and S2. No murmurs, rubs, or gallops. ABDOMEN: Soft and nontender. EXTREMITIES: No clubbing. No cyanosis. no edema. INTEGUMENT: No rash. No purpura. LABORATORY DATA: cr 2.76, k 3.6. wbc 10, hct 35 inr 2.92 IMPRESSION AND PLAN: 1. Pneumonia. 2. Hypoxemia, under evaluation. 3. Debility/weakness. 4. Hx of coronary artery disease 5. acute/chronic systolic heart failure. 5. Hx deep venous thrombosis and pulmonary embolism. 6. Hypertension. 7. Hx CVA with right hemiparesis Repeat intermittent chest x-ray. follow kidney function Supplement oxygen, wean as tolerated Antibiotics. Bronchodilators prn Aggressive PT and OT continue behavioral measures to avoid sundowning Thank you very much, Dr. Ortiz, for this consult. Please call for questions.
[2019-03-27] MEDS: BALSAM PERU/CASTOR OIL 60 GM OINT...G. TP SCH ×2 (11:03→21:38)
[2019-03-27] MEDS ORDERED: ACETAMINOPHEN 325 MG TAB PO PRN (11:15)
[2019-03-27] MEDS ORDERED: ACETAMINOPHEN/CODEINE 300MG - 30MG TAB PO PRN (11:15)
[2019-03-27] MEDS ORDERED: POTASSIUM CHLORIDE 20 MEQ TAB CR PO ONE (11:30)
--- NOTE | 2019-03-27 11:54 | NUR ---
Nutrition Screen Note RD Recommendation for Physician: Continue diet as ordered Plan of Care: RD following, monitoring for tolerance and adequacy Nutrition reason for involvement: LOS Primary Diagnose(s):Dyspnea, Hypoxia, Weakness PMH: CVA, CKD stage 3, CAD, CHF, Afib, HTN Ht:72 in Wt:193lb BMI:26.2 kg/m2 IBW:178lb +/-10% RD Assessment: (03/27/19) Chart reviewed. Labs and meds reviewed. Initial encounter with patient. Pt did not participate much due to being tired. Family states pt had a rough night. Pt with a Poor Po intake today and he only ate about 25% of breakfast. Pt did drink an Ensure Enlive. Family states that he drinks one with each meal when at home and that they requested that the nurse give the Pt an Ensure Enlive. Pt wears dentures, but denies any difficulty chewing or swallowing, N,V,D. Pt needs assist with meals due to right sided weakness. Pt is right hand dominate. No known food allergies. Current Diet: Cardiac diet Malnutrition Evaluation 03/27/19) The patient does not meet criteria for a specified degree of malnutrition at this time. Will re-evaluate at follow-up as appropriate. Diet Education Needs Assessment: Diet education not indicated. Nutrition Care Level: Low Signed: Wm Conner RD, LD, [facility]
--- NOTE | 2019-03-27 14:56 | Progress Note ---
DATE: 03/27/2019 Cardiology Progress Note SUBJECTIVE: The patient found standing with physical therapy. Did not sleep last night. Mild confusion today. Denies any chest pain. Reports some mild shortness of breath. OBJECTIVE: VITAL SIGNS: Temperature is 98, heart rate is 110, respirations are 20, blood pressure is 119/85, oxygen saturation is 100% on 4 L nasal cannula. GENERAL: Elderly appearing man, no apparent distress. CARDIOVASCULAR: Irregularly irregular. Tachycardic. LUNGS: Diminished breath sounds at bases. ABDOMEN: Soft, nontender, nondistended. EXTREMITIES: Trace edema. CARDIOVASCULAR MEDICATIONS: Reviewed. LABORATORY DATA: Reviewed. Hemoglobin 12.2. AST is 508, ALT is 344, creatinine is 2.76, potassium 3.6. TELEMETRY: Monitoring revealed atrial fibrillation with rapid ventricular response. IMPRESSION: 1. Atrial fibrillation with rapid ventricular response. 2. [id number]-[id number] systolic congestive heart failure. 3. Pneumonia. 4. Sepsis. 5. Permanent pacemaker. 6. Coronary artery disease. 7. Acute liver injury. 8. Hyqez-lv-kclpdhj kidney disease. RECOMMENDATIONS: Amiodarone has been discontinued given worsening of his liver function. His blood pressure has been stable and has actually increased, so we can increase his metoprolol to b.i.d. dosing. Continue Xarelto for anticoagulation. Avoid DEL inhibitor or ARB given acute kidney injury. We will continue to monitor his creatinine and urinary outputs. Continue close monitoring on telemetry. Adria Mascorro DO BM/MODL /[id number]
[2019-03-27] MEDS: METOPROLOL TARTRATE 25 MG TAB PO SCH (16:35)
[2019-03-27] MEDS: RIVAROXABAN 10 MG TABLET PO SCH (16:36)
--- NOTE | 2019-03-27 16:52 | NUR ---
Report given to ARIANA Jimenez.
[2019-03-27] MEDS: MIRTAZAPINE 15 MG TAB PO SCH (21:38)
[2019-03-28] VITALS (7 sets, daily range): BP systolic 97–138; BP diastolic 61–81
--- NOTE | 2019-03-28 00:14 | NUR ---
patient resting in bed, no distress noted, vitals checked, bed alarm is on, will continue to monitor.
[2019-03-28 05:24] LABS: BASOPHILS % 0.4 % (0.0-1.0); EOSINOPHILS # (AUTO) 0.4 (0.0-0.4); EOSINOPHILS % 3.6 % (0.0-6.0); HEMATOCRIT 33.2 % (38.2-49.6); HEMOGLOBIN 11.7 g/dL (14.0-18.0); LYMPHOCYTES # (AUTO) 1.1 (1.0-3.2); MEAN CORPUSCULAR HEMOGLOBIN 30.5 pg (28-32); MEAN CORPUSCULAR HGB CONC 35.2 g/dL (31-35); MEAN CORPUSCULAR VOLUME 86.7 fL (81-99); MONOCYTES # (AUTO) 0.9 (0.2-0.8); MONOCYTES % 8.3 % (4.4-11.3); NEUTROPHILS # (AUTO) 7.9 (2.1-6.9); NEUTROPHILS % 74.4 % (38.7-80.0); PLATELET COUNT 232 x10e3/uL (140-360); RED BLOOD COUNT 3.83 x10e6/uL (4.3-5.7); RED CELL DISTRIBUTION WIDTH 15.8 % (11.7-14.4)
[2019-03-28 05:41] LABS: INR 1.59; PROTHROMBIN TIME 19.6 seconds (11.9-14.5)
[2019-03-28 05:42] LABS: PARTIAL THROMBOPLASTIN TIME 45.6 seconds (23.8-35.5)
[2019-03-28 05:48] LABS: ALBUMIN/GLOBULIN RATIO 0.5 (0.8-2.0); ANION GAP 16.7 mmol/L (8-16); CALCIUM 9.2 mg/dL (8.4-10.2); CREATININE, SERUM 2.39 mg/dL (0.72-1.25); MAGNESIUM 2.1 MG/DL (1.3-2.1); PHOSPHORUS 4.1 MG/DL (2.3-4.7); POTASSIUM 3.7 mmol/L (3.5-5.1)
[2019-03-28] MEDS: METOPROLOL TARTRATE 25 MG TAB PO SCH ×2 (07:02→17:00)
[2019-03-28] MEDS: IPRATROPIUM BROMIDE 0.02% 2.5 ML NEB NEB SCH ×3 (07:05→14:48)
[2019-03-28] MEDS: ALBUTEROL SULF 0.083% NEB SOLN 3 ML NEB NEB PRN ×3 (07:05→19:49)
[2019-03-28] MEDS: DOCUSATE SODIUM 100 MG CAP PO SCH ×2 (09:07→17:25)
[2019-03-28] MEDS: BALSAM PERU/CASTOR OIL 60 GM OINT...G. TP SCH ×2 (09:07→21:00)
[2019-03-28] MEDS: LORATADINE 10 MG TAB PO SCH (09:07)
[2019-03-28] MEDS: FUROSEMIDE 40 MG TAB PO SCH (09:07)
[2019-03-28] MEDS: FAMOTIDINE 20 MG/2 ML VIAL IV SCH (09:08)
[2019-03-28] MEDS: ASPIRIN 81 MG CHEW TAB PO SCH (09:08)
[2019-03-28] MEDS ORDERED: SODIUM CHLORIDE 0.9% 250ML 250 ML ONE (09:40)
[2019-03-28] MEDS: CEFEPIME 1GM/NS 0.9% 50 ML 50 ML IV SCH (09:45)
--- NOTE | 2019-03-28 10:31 | NUR ---
Dr. Ward notified of Vancomycin trough level 11.9 received orders to continue with vancomycin antibiotic
[2019-03-28] MEDS: VANCOMYCIN 1GM/NS 250 ML 250 ML IV SCH (10:43)
--- NOTE | 2019-03-28 12:13 | NUR ---
Pulmonary Medicine DATE OF CONSULTATION: 03/28/2019 SUBJECTIVE: using home cpap ambulating with standby REVIEW OF SYSTEMS: no seizures, no headaches PHYSICAL EXAMINATION: VITAL SIGNS: vital signs noted and reviewed per the chart record. GENERAL: no acute distress, alert and calm. Appears weak HEENT: Normocephalic, atraumatic. NECK: Supple. Throat midline. LUNGS: Bilateral air entry is moderate, few rhonchi noted. CARDIOVASCULAR: S1 and S2. No murmurs, rubs, or gallops. ABDOMEN: Soft and nontender. EXTREMITIES: No clubbing. No cyanosis. no edema. INTEGUMENT: No rash. No purpura. LABORATORY DATA: inr 1.59 k 3.7, cr 2.4. hco3 18 IMPRESSION AND PLAN: 1. Pneumonia. 2. Hypoxemia, under evaluation. 3. Debility/weakness. 4. Hx of coronary artery disease 5. acute/chronic systolic heart failure. 5. Hx deep venous thrombosis and pulmonary embolism. 6. Hypertension. 7. Hx CVA with right hemiparesis Repeat intermittent chest x-ray. follow kidney function Supplement oxygen, wean as tolerated Antibiotics. Bronchodilators prn Aggressive PT and OT continue, mobilize behavioral measures to avoid sundowning Thank you very much, Dr. Ortiz, for this consult. Please call for questions.
--- NOTE | 2019-03-28 13:19 | Progress Note ---
DATE: 03/28/2019 Cardiology Progress Note SUBJECTIVE: The patient has been sleeping more often. Denies any chest pain or shortness of breath. OBJECTIVE: VITAL SIGNS: Temperature is 97.8, heart rate 69, respirations are 23, blood pressure ranges 124/72, oxygen saturation 99% on 3 L nasal cannula. GENERAL: Elderly male seated at bedside, in no apparent distress. CARDIOVASCULAR: Irregularly irregular. Normal rate. LUNGS: Diminished breath sounds at bases. ABDOMEN: Soft, nontender, nondistended. EXTREMITIES: Trace edema. LABORATORY DATA: Reviewed. Hemoglobin 11.7. AST 282, ALT is 284. Troponins are negative. Creatinine improved to 2.39. TELEMETRY: Monitoring revealed atrial fibrillation with occasional ventricular paced rhythm. IMPRESSION: 1. Atrial fibrillation. 2. Presence of a permanent pacemaker. 3. Acute on chronic systolic congestive heart failure. 4. Pneumonia. 5. Sepsis. 6. Acute liver injury. 7. Acute on chronic kidney disease. RECOMMENDATIONS: Renal and liver function continue to improve. We will stay off amiodarone for now. Continue Xarelto for anticoagulation or increased to 15 mg daily. We will avoid nephrotoxic agents. Continue metoprolol 25 mg b.i.d. as blood pressure can tolerate. Continue to monitor his creatinine and urinary output. Continue close telemetry monitoring. Adria Mascorro DO BM/MODL /[id number]
[2019-03-28] MEDS: RIVAROXABAN 10 MG TABLET PO SCH (17:25)
--- NOTE | 2019-03-28 19:45 | NUR ---
Report and walking rounds completed. at bedside, patient in bed watching TV. No issues or concerns at this time. Call light within reach. 02 High flow 4L NC. Informed patient and that patient to be moving rooms to med/surg unit, verbalized understanding. Will continue to monitor.
--- NOTE | 2019-03-28 20:59 | NUR ---
Report called to nurse for room 101 on med/surg 1.
--- NOTE | 2019-03-28 21:10 | NUR ---
Patient transferred to room 101 with and son at side. All belongings gathered and transferred with patient. No issues or concerns at this time. Call light within reach. Patient stable.
[2019-03-28] MEDS: MIRTAZAPINE 15 MG TAB PO SCH (21:54)
[2019-03-29] VITALS (8 sets, daily range): BP systolic 112–136; BP diastolic 60–96
[2019-03-29 06:08] LABS: BASOPHILS % 0.3 % (0.0-1.0); EOSINOPHILS # (AUTO) 0.3 (0.0-0.4); EOSINOPHILS % 2.8 % (0.0-6.0); HEMATOCRIT 32.9 % (38.2-49.6); HEMOGLOBIN 11.8 g/dL (14.0-18.0); LYMPHOCYTES # (AUTO) 1.2 (1.0-3.2); LYMPHOCYTES % 10.5 % (18.0-39.1); MEAN CORPUSCULAR HEMOGLOBIN 31.1 pg (28-32); MEAN CORPUSCULAR HGB CONC 35.9 g/dL (31-35); MEAN CORPUSCULAR VOLUME 86.8 fL (81-99); MONOCYTES # (AUTO) 0.8 (0.2-0.8); MONOCYTES % 7.3 % (4.4-11.3); NEUTROPHILS # (AUTO) 8.7 (2.1-6.9); NEUTROPHILS % 75.7 % (38.7-80.0); PLATELET COUNT 278 x10e3/uL (140-360); RED BLOOD COUNT 3.79 x10e6/uL (4.3-5.7); RED CELL DISTRIBUTION WIDTH 15.9 % (11.7-14.4)
[2019-03-29 06:49] LABS: ALBUMIN 2.1 g/dL (3.5-5.0); ALBUMIN/GLOBULIN RATIO 0.6 (0.8-2.0); ANION GAP 15.5 mmol/L (8-16); CALCIUM 9.4 mg/dL (8.4-10.2); CREATININE, SERUM 2.16 mg/dL (0.72-1.25); POTASSIUM 3.5 mmol/L (3.5-5.1)
--- NOTE | 2019-03-29 07:00 | NUR ---
RECEIVED PATIENT RESTING IN BED NO S/S OF DISTRESS. BED LOW, WHEELS LOCKED, SIDE RAILS X2. FAMILY AT BEDSIDE. CALL LIGHT IN REACH WILL CONTINUE TO MONITOR PATIENT.
[2019-03-29] MEDS: IPRATROPIUM BROMIDE 0.02% 2.5 ML NEB NEB SCH ×3 (07:50→22:45)
--- NOTE | 2019-03-29 08:05 | Diagnostic Imaging Report ---
Examination: Single AP view of the chest. COMPARISON: 03/27/2019 INDICATION: Pneumonia, CHF DISCUSSION: Left subclavian approach implantable cardiac device body and leads are unchanged. Lung volumes remain low with persistent patchy airspace disease in the bases. No new consolidation or sizable pleural effusion. Unchanged enlargement of the cardiac silhouette pulmonary venous congestion. No acute osseous abnormality. IMPRESSION: No appreciable interval change in low lung volumes with presumed subsegmental atelectasis lung bases. No new consolidations. Signed by: Dr. Jeevan Myers M.D. on 03/29/2019 8:01 AM
[2019-03-29] MEDS: LORATADINE 10 MG TAB PO SCH (08:49)
[2019-03-29] MEDS: FUROSEMIDE 40 MG TAB PO SCH (08:49)
[2019-03-29] MEDS: ASPIRIN 81 MG CHEW TAB PO SCH (08:49)
[2019-03-29] MEDS: FAMOTIDINE 20 MG/2 ML VIAL IV SCH (08:49)
[2019-03-29] MEDS: METOPROLOL TARTRATE 25 MG TAB PO SCH ×2 (08:49→17:31)
[2019-03-29] MEDS: DOCUSATE SODIUM 100 MG CAP PO SCH ×2 (08:49→17:30)
[2019-03-29] MEDS ORDERED: SODIUM CHLORIDE 0.9% 250ML 250 ML ONE (08:55)
[2019-03-29] MEDS: CEFEPIME 1GM/NS 0.9% 50 ML 50 ML IV SCH (09:00)
[2019-03-29] MEDS: BALSAM PERU/CASTOR OIL 60 GM OINT...G. TP SCH ×2 (09:38→21:59)
[2019-03-29] MEDS: VANCOMYCIN 1GM/NS 250 ML 250 ML IV SCH (10:07)
[2019-03-29] MEDS ORDERED: POTASSIUM CHLORIDE 10MEQ EA PO ONE (11:30)
--- NOTE | 2019-03-29 16:22 | Progress Note ---
DATE: 03/29/2019 Cardiology Progress Note The patient denies chest pain or shortness of breath. OBJECTIVE: VITAL SIGNS: Temperature 98.6 degrees, pulse 86, respiratory rate 18, blood pressure 130/81, oxygen saturation 96% on 4 L nasal cannula. GENERAL: Elderly man, in no acute distress. Awake and alert. LUNGS: Clear to auscultation bilaterally. No wheezes or crackles. CARDIOVASCULAR: Irregularly irregular, normal rate. Normal S1, S2. ABDOMEN: Soft, nontender. EXTREMITIES: No edema. CARDIAC MEDICATIONS: Metoprolol tartrate 25 mg p.o. b.i.d., aspirin 81 mg p.o. daily, Xarelto 10 mg p.o. daily, furosemide 40 mg IV q.12 hours. LABORATORY DATA: WBC 11.45, hemoglobin 11.8, hematocrit 32.9, platelets 278. Sodium 139, potassium 3.5, chloride 107, CO2 of 20, BUN 60, creatinine 2.16. BNP 353. TELEMETRY: Atrial fibrillation. IMPRESSION: 1. Atrial fibrillation. 2. Status post permanent pacemaker. 3. Acute on chronic systolic heart failure. 4. Pneumonia. 5. Sepsis. 6. Acute liver injury. 7. Acute on chronic kidney disease. RECOMMENDATIONS: Continue Xarelto for CVA prophylaxis given calculated creatinine clearance, would recommend increasing dose to 15 mg daily. Remain off amiodarone at this time given elevated LFTs. Monitor patient closely on telemetry. Continue current cardiac medications otherwise. BNP is improving. Continue diuretics. Monitor and replete electrolytes. Thank you for this consult. We will continue to follow. Fabiola Miranda MD ABS/MODL /[id number]
[2019-03-29] MEDS: RIVAROXABAN 10 MG TABLET PO SCH (17:31)
[2019-03-29] MEDS: FUROSEMIDE INJ 10 MG/ML 4 ML VIAL IV SCH (21:59)
[2019-03-29] MEDS: MIRTAZAPINE 15 MG TAB PO SCH (21:59)
--- NOTE | 2019-03-29 23:11 | NUR ---
Pulmonary Medicine DATE OF CONSULTATION: 03/29/2019 SUBJECTIVE: ate well 4 L/min oxygen more energy couldnt get to sit in chair, legs too weak REVIEW OF SYSTEMS: no seizures, no headaches PHYSICAL EXAMINATION: VITAL SIGNS: vital signs noted and reviewed per the chart record. GENERAL: no acute distress, alert and calm. Appears weak HEENT: Normocephalic, atraumatic. NECK: Supple. Throat midline. LUNGS: Bilateral air entry is moderate, few rhonchi noted. CARDIOVASCULAR: S1 and S2. No murmurs, rubs, or gallops. ABDOMEN: Soft and nontender. EXTREMITIES: No clubbing. No cyanosis. no edema. INTEGUMENT: No rash. No purpura. LABORATORY DATA: k 3.5, cr 2.16. wbc 1, hct 33. lfts ast 151, alt 212, ap 228 IMPRESSION AND PLAN: 1. Pneumonia. 2. Hypoxemia, under evaluation. 3. Debility/weakness. 4. Hx of coronary artery disease 5. acute/chronic systolic heart failure. 5. Hx deep venous thrombosis and pulmonary embolism. 6. Hypertension. 7. Hx CVA with right hemiparesis 8. elevated LFTs Repeat intermittent chest x-ray. follow kidney function Supplement oxygen, wean as tolerated Antibiotics. Bronchodilators prn Aggressive PT and OT continue, mobilize behavioral measures to avoid sundowning avoid hepatotoxins Thank you very much, Dr. Ortiz, for this consult. Please call for questions.
[2019-03-30] VITALS (8 sets, daily range): BP systolic 85–140; BP diastolic 55–83
--- NOTE | 2019-03-30 00:51 | NUR ---
Bed bath given.on c pap.bed alarm on.bed locked and in lowest position.phone and call light within reach.instructed to call for assistance as needed.
--- NOTE | 2019-03-30 02:49 | NUR ---
Patient is confused.said that "i am kidnapped and my also kidnapped.call police." is in the patient room. talked to patient.as a nurse I tried to calm down the pt.repeated the same words.no progress.then called security, came and talked him.calming down.keep monitor the pt.
[2019-03-30 06:26] LABS: BASOPHILS # (AUTO) 0.1 (0.0-0.1); BASOPHILS % 0.7 % (0.0-1.0); EOSINOPHILS # (AUTO) 0.3 (0.0-0.4); EOSINOPHILS % 2.4 % (0.0-6.0); HEMATOCRIT 36.9 % (38.2-49.6); HEMOGLOBIN 12.7 g/dL (14.0-18.0); LYMPHOCYTES # (AUTO) 1.5 (1.0-3.2); LYMPHOCYTES % 11.9 % (18.0-39.1); MEAN CORPUSCULAR HEMOGLOBIN 30.6 pg (28-32); MEAN CORPUSCULAR HGB CONC 34.4 g/dL (31-35); MEAN CORPUSCULAR VOLUME 88.9 fL (81-99); MONOCYTES # (AUTO) 0.9 (0.2-0.8); MONOCYTES % 6.9 % (4.4-11.3); NEUTROPHILS # (AUTO) 9.1 (2.1-6.9); NEUTROPHILS % 72.6 % (38.7-80.0); PLATELET COUNT 321 x10e3/uL (140-360); RED BLOOD COUNT 4.15 x10e6/uL (4.3-5.7); RED CELL DISTRIBUTION WIDTH 15.8 % (11.7-14.4)
--- NOTE | 2019-03-30 06:50 | NUR ---
BED SIDE SHIFT REPORT GIVEN TO THE ONCOMING RN.STABLE CONDITION.
[2019-03-30 06:59] LABS: ALBUMIN 2.5 g/dL (3.5-5.0); ALBUMIN/GLOBULIN RATIO 0.6 (0.8-2.0); ANION GAP 17.9 mmol/L (8-16); CALCIUM 10.3 mg/dL (8.4-10.2); CREATININE, SERUM 2.2 mg/dL (0.72-1.25); POTASSIUM 3.9 mmol/L (3.5-5.1)
--- NOTE | 2019-03-30 07:00 | NUR ---
RECEIVED PATIENT ASLEEP IN BED NO S/S OF DISTRESS. BED LOW, WHEELS LOCKED, SIDE RAILS X2. FAMILY AT BEDSIDE. CALL LIGHT IN REACH WILL CONTINUE TO MONITOR PATIENT.
[2019-03-30] MEDS: IPRATROPIUM BROMIDE 0.02% 2.5 ML NEB NEB SCH ×3 (07:58→23:14)
[2019-03-30] MEDS: ALBUTEROL SULF 0.083% NEB SOLN 3 ML NEB NEB PRN ×2 (07:58→19:25)
[2019-03-30] MEDS: ASPIRIN 81 MG CHEW TAB PO SCH (08:58)
[2019-03-30] MEDS: FAMOTIDINE 20 MG/2 ML VIAL IV SCH (08:58)
[2019-03-30] MEDS: METOPROLOL TARTRATE 25 MG TAB PO SCH ×2 (08:58→16:52)
[2019-03-30] MEDS: LORATADINE 10 MG TAB PO SCH (08:58)
[2019-03-30] MEDS: DOCUSATE SODIUM 100 MG CAP PO SCH ×2 (08:58→16:52)
[2019-03-30] MEDS: FUROSEMIDE INJ 10 MG/ML 4 ML VIAL IV SCH ×2 (08:58→21:13)
[2019-03-30] MEDS: BALSAM PERU/CASTOR OIL 60 GM OINT...G. TP SCH ×2 (09:00→21:13)
[2019-03-30] MEDS: CEFEPIME 1GM/NS 0.9% 50 ML 50 ML IV SCH (09:38)
--- NOTE | 2019-03-30 09:46 | NUR ---
PATIENT A/O X2, EVEN RESPIRATIONS ON 4LNC. NO PAIN AT THIS TIME. TELEMETRY #21 A FIB. PATIENT TRANSFERS TO CHAIR WITH 2 PERSON ASSIST. RIGHT FA [address] GAUGE [address] SL[address] CONDOM CATH IN PLACE. AT BEDSIDE. CALL LIGHT IN REACH WILL CONTINUE TO MONITOR PATIENT.
[2019-03-30] MEDS: VANCOMYCIN 1GM/NS 250 ML 250 ML IV SCH (10:15)
--- NOTE | 2019-03-30 10:18 | NUR ---
SPOKE WITH DR. KOCH DURING ROUNDS. DR. KOCH DOES NOT WANT PATIENT TO LEAVE TO [facility] UNTIL TOMORROW MORNING IF BED AVAILABLE.
[2019-03-30] MEDS ORDERED: HALOPERIDOL LACTATE 5 MG/ML VIAL IM PRN (11:15)
[2019-03-30] MEDS: RIVAROXABAN 10 MG TABLET PO SCH (16:52)
--- NOTE | 2019-03-30 16:56 | NUR ---
GOT CALLED TO ROOM, PT FAMILY WORRIED ABOUT DENIAL FROM [facility]. CALLED CM WHOM HAD ALREADY LEFT THE BUILDING AND WAS ABLE TO FIND THAT IT WAS DENIED AND IS IN PROCESS OF GETTING AN APPEAL AND THEY HAVE UNTIL 04/01/2019 TO RESPOND. DAUGHTER EDUARDO IS WORRIED AND STATES PT IS NOT SAFE TO RETURN HOME AND WAS UNDER THE IMPRESSION HER DAD WAS BEING DISCHARGED TOMORROW. I ASSURED HER THAT WE WOULD WAIT FOR THE APPEAL PROCESS AND IF IT IS DENIED WE CAN TALK ABOUT ALTERNATE REFERRAL RESOURCES.
--- NOTE | 2019-03-30 17:27 | NUR ---
SPOKE WITH DAUGHTER EDUARDO AND GAVE OPTIONS, SHE STATES SHE LIVES IN [facility] AND IF NEEDS PLACEMENT WANTS TO GO TO A BUILDING OVER THERE IF THEY CANNOT GET [facility] APPROVAL.
--- NOTE | 2019-03-30 18:29 | Consultation ---
DATE OF CONSULTATION: 03/30/2019 Psychiatric Consultation REASON FOR CONSULTATION: To evaluate the patient's confusion. HISTORY OF PRESENT ILLNESS: The patient is an 83-year-old male, admitted to the hospital for dyspnea, hypoxia, and weakness. Psych problems noted for psychosis. As per the medical record, the patient has history of coronary artery disease, systolic heart failure, paroxysmal atrial fibrillation, pacemaker, DVT, PE, hypertension, and CVA. Upon evaluation today, the patient is found to be lying on the bed sleeping. He is on oxygen. His is in the room. History is first taken with the help of the . As per the , the patient has a stroke 3 years ago. Since then, he has been confused. However, he has not been at baseline for the last 2 nights. He has been agitated, yelling, screaming, telling people he is in [facility] and that he has been kidnapped. He is trying to leave the hospital. He is not sleeping at night and mostly sleeping at daytime. His appetite has been intermittent, especially while in the hospital. At home, he is able to answer questions, know where he is, know the year, watch the TV. He walks with a walker. He does not drive. Then, he had a stroke and he has not been paying the bills, and he had a stroke as well. He has never been diagnosed with dementia, but the reports that the patient does have cognitive impairment, has difficulty finding words at times. The patient is arousable. He does not know where he is. He is able to recognize the . Does not know the current year. He is calm. He is hard of hearing. He is not paranoid at this time. He has difficulty answering questions, mostly due to hearing issues and also possible from his confusion. PAST PSYCHIATRIC HISTORY: Family denies that the patient has any past psychiatric history, although they admits the patient was taking Cymbalta at home. He never attempted suicide before. Does not drink alcohol or use any drugs. FAMILY HISTORY: His sister had Alzheimer, who and his brother has cognitive impairment, who is currently in the custodial. SOCIAL HISTORY: The patient lives with his . MENTAL STATUS EXAM: The patient is an elderly male. He is alert, awake, and oriented to self and situation. Does not know where he is or the current year. Denies any depression. He is calm, cooperative. Not paranoid, not agitated at this time. He is confused, but pleasant. Mood is some anxiety. Psychomotor state is passive. Denies any hallucination. Unable to report suicidal or homicidal ideation. Insight and judgment are limited. Memory appears to be grossly impaired. CURRENT MEDICATIONS: 1. Vancomycin. 2. Cefepime. 3. Lasix. 4. Metoprolol. 5. Famotidine. 6. Loratadine. 7. Docusate sodium. 8. Aspirin. 9. Atrovent. 10. Albuterol. 11. Remeron 15 mg p.o. at bedtime. 12. Xarelto. CURRENT LABORATORY DATA: WBC 12.5, RBC 4.15, hemoglobin 12.7, hematocrit 36.9, and platelets 321. Sodium 142, potassium 3.9, chloride 105, CO2 23, BUN 56, and creatinine 2.20. AST 106 and ALT 184. ASSESSMENT: 1. Unspecified psychosis/delirium. 2. Rule out dementia. PLAN: 1. To continue with Remeron 15 mg p.o. at bedtime. 2. Add Haldol 2 mg IM q.6 hours p.r.n. 3. Add Risperdal 0.5 mg p.o. q.6 hours p.r.n. 4. Monitor for agitation. Thank you for this consultation. Dictated by Laine Rondon PA-C Chacorta Rahman MD QTV/JOSEL /[id number]
--- NOTE | 2019-03-30 19:15 | Progress Note ---
DATE: 03/30/2019 Cardiology Progress Note SUBJECTIVE: The patient denies chest pain, but he does endorse shortness of breath. OBJECTIVE: VITAL SIGNS: Temperature 99.5 degrees, pulse 78, respiratory rate 18, blood pressure 124/76, and oxygen saturation 91% on 3 L nasal cannula. GENERAL: Elderly man, in no acute distress. Awake and alert. LUNGS: Clear to auscultation bilaterally. No wheezes or crackles. CARDIOVASCULAR: Irregularly irregular. Normal rate. Normal S1 and S2. ABDOMEN: Soft and nontender. EXTREMITIES: No edema. CARDIAC MEDICATIONS: Metoprolol tartrate 25 mg p.o. b.i.d., Xarelto 10 mg p.o. daily, furosemide 40 mg IV q.12 hours, and aspirin 81 mg p.o. daily. LABORATORY DATA: WBC 12.58, hemoglobin 12.7, hematocrit 36.9, and platelets 321. Sodium 142, potassium 3.9, chloride 105, CO2 23, BUN 56, and creatinine 2.2. TELEMETRY: Atrial fibrillation. IMPRESSION: 1. Atrial fibrillation, status post permanent pacemaker. 2. Hialc-hh-vwojgsj systolic heart failure. 3. Pneumonia. 4. Sepsis. 5. Acute liver injury. 6. Lwtnj-zo-dwavbui kidney disease. RECOMMENDATIONS: Continue Xarelto for CVA prophylaxis. Given calculated creatinine clearance, would recommend increasing dose to 15 mg daily. Given elevated LFTs, we will keep the patient off amiodarone at this time. Monitor the patient closely on telemetry. Continue current cardiac medications. Volume status is gradually improving. Continue diuretics. Monitor and replete electrolytes. Antibiotics per primary service. Thank you for this consult. We will continue to follow. Fabiola Miranda MD ABS/MODL /[id number]
[2019-03-30] MEDS: MIRTAZAPINE 15 MG TAB PO SCH (21:45)
[2019-03-30] MEDS: RISPERIDONE 0.5 MG TAB PO PRN (21:47)
--- NOTE | 2019-03-30 22:26 | NUR ---
Assessment done.no resp.distress.no pain voiced.iv to right for arm is patent.had small amount of bowel movement.on diaper.family member at bed side.on c pap.sleeping right now.bed alarm on.bed locked and in lowest position.phone and call light within reach.instructed to call for assistance as needed.
[2019-03-31] VITALS (8 sets, daily range): BP systolic 99–145; BP diastolic 58–86
--- NOTE | 2019-03-31 00:19 | NUR ---
Pulmonary Medicine DATE 03/30/2019 SUBJECTIVE: ate well BM+ some AMS, didnt sleep well last night 2 person large assist to get up REVIEW OF SYSTEMS: no seizures, no headaches PHYSICAL EXAMINATION: VITAL SIGNS: vital signs noted and reviewed per the chart record. GENERAL: no acute distress, alert and calm. Appears weak HEENT: Normocephalic, atraumatic. NECK: Supple. Throat midline. LUNGS: Bilateral air entry is moderate, few rhonchi noted. CARDIOVASCULAR: S1 and S2. No murmurs, rubs, or gallops. ABDOMEN: Soft and nontender. EXTREMITIES: No clubbing. No cyanosis. no edema. INTEGUMENT: No rash. No purpura. LABORATORY DATA: cr 2.2, 12.5 wbc IMPRESSION AND PLAN: 1. Pneumonia. 2. Hypoxemia, under evaluation. 3. Debility/weakness. 4. Hx of coronary artery disease 5. acute/chronic systolic heart failure. 5. Hx deep venous thrombosis and pulmonary embolism. 6. Hypertension. 7. Hx CVA with right hemiparesis 8. elevated LFTs Repeat intermittent chest x-ray. follow kidney function Supplement oxygen, wean as tolerated Antibiotics. Bronchodilators prn Aggressive PT and OT continue, mobilize behavioral +/- medication measures to avoid sundowning avoid hepatotoxins, LFTs better Thank you very much, Dr. Ortiz. Please call for questions.
[2019-03-31 05:59] LABS: ANION GAP 16.7 mmol/L (8-16); CALCIUM 10.3 mg/dL (8.4-10.2); CREATININE, SERUM 2.38 mg/dL (0.72-1.25); POTASSIUM 3.7 mmol/L (3.5-5.1)
[2019-03-31] MEDS: IPRATROPIUM BROMIDE 0.02% 2.5 ML NEB NEB SCH ×2 (06:55→16:00)
--- NOTE | 2019-03-31 07:00 | NUR ---
Bed side shift report given to the on coming Rn.stable condition.
[2019-03-31] MEDS: ASPIRIN 81 MG CHEW TAB PO SCH (09:07)
[2019-03-31] MEDS: METOPROLOL TARTRATE 25 MG TAB PO SCH ×2 (09:07→17:12)
[2019-03-31] MEDS: CEFEPIME 1GM/NS 0.9% 50 ML 50 ML IV SCH (09:07)
[2019-03-31] MEDS: BALSAM PERU/CASTOR OIL 60 GM OINT...G. TP SCH ×2 (09:07→20:04)
[2019-03-31] MEDS: DOCUSATE SODIUM 100 MG CAP PO SCH ×2 (09:07→17:12)
[2019-03-31] MEDS: LORATADINE 10 MG TAB PO SCH (09:07)
[2019-03-31] MEDS: FAMOTIDINE 20 MG/2 ML VIAL IV SCH (09:07)
[2019-03-31] MEDS: FUROSEMIDE INJ 10 MG/ML 4 ML VIAL IV SCH (09:15)
[2019-03-31] MEDS: VANCOMYCIN 1GM/NS 250 ML 250 ML IV SCH (10:00)
--- NOTE | 2019-03-31 14:37 | Progress Note ---
DATE: 03/31/2019 Psychiatric Progress Note SUBJECTIVE: The patient evaluated and events noted. The patient is in the room with the . The patient is alert, awake, and oriented to situation. He is calm and cooperative. He knows where he is. He ate much better as per the . He denies any depression. As per the , the patient was restless, confused, thinking that he was at a strip club taking off his clothes. The patient received Haldol. Though nurse's note indicated that the patient was resting after he got the Risperdal p.r.n. ASSESSMENT: 1. Unspecified psychosis/delirium. 2. Rule out dementia. PLAN: 1. To continue Remeron 15 mg p.o. at bedtime. 2. Add Risperdal 0.5 mg p.o. at bedtime. 3. Continue Risperdal p.r.n. p.o. 4. Continue Haldol p.r.n. IM. 5. Monitor for agitation. 6. Discontinue Cymbalta. Dictated by Laine Rondon PA-C MD YELENA PhilipV/LINDSEY /[id number]
[2019-03-31] MEDS ORDERED: RIVAROXABAN 10 MG TABLET PO SCH (17:15)
--- NOTE | 2019-03-31 18:34 | NUR ---
Pt in bed now. He was up in chair for all meals today. Denies an pain at this time. Bed alarm in place and bed in lowest position.
--- NOTE | 2019-03-31 19:19 | NUR ---
WALKING ROUNDS PERFORMED, RECEIVED PT LAYING SEMI FOWLERS IN BED, AAOX2, RR EVEN AND NON-LABORED, O2 BY NC AT 2L. NO S/SX OF DISTRESS NOTED. LEFT PT LAYING SEMI FOWLERS IN BED, BED IN LOW LOCKED POSITION, SIDE RAILS UPX3, CALL LIGHT AND PHONE WITHIN REACH. FAMILY AT BEDSIDE.
--- NOTE | 2019-03-31 19:49 | Progress Note ---
DATE: 03/31/2019 Cardiology Progress Note SUBJECTIVE: The patient denies chest pain or shortness of breath. OBJECTIVE: VITAL SIGNS: Temperature 98.1 degrees, pulse 60, respiratory rate 18, blood pressure 122/73, and oxygen saturation 95%. GENERAL: Elderly man, in no acute distress. Awake and alert. LUNGS: Clear to auscultation bilaterally. No wheezes or crackles. CARDIOVASCULAR: Irregularly irregular. Normal rate. Normal S1 and S2. ABDOMEN: Soft and nontender. EXTREMITIES: No edema. CARDIAC MEDICATIONS: Metoprolol tartrate 25 mg p.o. b.i.d., furosemide 40 mg IV daily, aspirin 81 mg p.o. daily, and Xarelto 10 mg p.o. daily. LABORATORY DATA: Sodium 145, potassium 3.7, chloride 103, CO2 29, BUN 62, and creatinine 2.38. TELEMETRY: Atrial fibrillation. IMPRESSION: 1. Atrial fibrillation, status post permanent pacemaker. 2. Kwjok-qk-qayubtn systolic heart failure. 3. Pneumonia. 4. Sepsis. 5. Meyra-ds-hsujllv kidney disease. 6. Acute liver injury. RECOMMENDATIONS: Continue Xarelto for CVA prophylaxis. Given his calculated creatinine clearance, would recommend increasing Xarelto to 15 mg p.o. daily. Remain off amiodarone due to elevated LFTs. Monitor the patient closely on telemetry. Continue current cardiac medications. His rate is controlled. Continue diuretics. Creatinine is relatively stable and volume status is gradually improving. Monitor and replete electrolytes. Antibiotics per primary service. Thank you for this consult. We will continue to follow. Fabiola Miranda MD ABS/MODL /[id number]
[2019-03-31] MEDS: RISPERIDONE 0.5 MG TAB PO SCH (20:04)
[2019-03-31] MEDS: MIRTAZAPINE 15 MG TAB PO SCH (20:04)
--- NOTE | 2019-03-31 20:04 | NUR ---
AFTER MEDICATION ADMIN, PT'S FAMILY ASSISTED TO APPLY HOME CPAP. LEFT PT (R) SIDE LAYING SEMI FOWLERS IN BED, BED IN LOW LOCKED POSITION, SIDE RAILS UPX3, CALL LIGHT AND PHONE WITHIN REACH. FAMILY TO STAY THE NIGHT.
[2019-03-31] MEDS ORDERED: RISPERIDONE 0.5 MG TAB PO SCH (21:00)
[2019-04-01] VITALS (8 sets, daily range): BP systolic 84–122; BP diastolic 57–83
--- NOTE | 2019-04-01 01:05 | NUR ---
Pulmonary Medicine DATE 03/31/2019 SUBJECTIVE: ate well BM+ 2 L/min oxygen poor sleep again REVIEW OF SYSTEMS: no seizures, no headaches PHYSICAL EXAMINATION: VITAL SIGNS: vital signs noted and reviewed per the chart record. GENERAL: no acute distress, alert , Appears weak HEENT: Normocephalic, atraumatic. NECK: Supple. Throat midline. LUNGS: Bilateral air entry is moderate, rare rhonchi noted. CARDIOVASCULAR: S1 and S2. No murmurs, rubs, or gallops. ABDOMEN: Soft and nontender. EXTREMITIES: No clubbing. No cyanosis. no edema. INTEGUMENT: No rash. No purpura. LABORATORY DATA: cr 2.38, k 3.7. IMPRESSION AND PLAN: 1. Pneumonia. Probable Gram negative pneumonia, Acquired prior to admit. 2. Hypoxemia, under evaluation. 3. Debility/weakness. 4. Hx of coronary artery disease 5. acute/chronic systolic heart failure. 5. Hx deep venous thrombosis and pulmonary embolism. 6. Hypertension. 7. Hx CVA with right hemiparesis 8. elevated LFTs 9. CKD III-IV Repeat intermittent chest x-ray. follow kidney function Supplement oxygen, wean as tolerated Antibiotics. Bronchodilators prn Aggressive PT and OT continue, mobilize behavioral +/- medication measures to avoid sundowning avoid hepatotoxins, LFTs better Thank you very much, Dr. Ortiz. Please call for questions.
[2019-04-01 06:01] LABS: BASOPHILS # (AUTO) 0.1 (0.0-0.1); BASOPHILS % 0.9 % (0.0-1.0); EOSINOPHILS # (AUTO) 0.3 (0.0-0.4); HEMATOCRIT 37.1 % (38.2-49.6); HEMOGLOBIN 12.5 g/dL (14.0-18.0); LYMPHOCYTES # (AUTO) 1.7 (1.0-3.2); LYMPHOCYTES % 16.8 % (18.0-39.1); MEAN CORPUSCULAR HEMOGLOBIN 30.5 pg (28-32); MEAN CORPUSCULAR HGB CONC 33.7 g/dL (31-35); MEAN CORPUSCULAR VOLUME 90.5 fL (81-99); MONOCYTES # (AUTO) 0.7 (0.2-0.8); MONOCYTES % 7.2 % (4.4-11.3); NEUTROPHILS % 67.8 % (38.7-80.0); PLATELET COUNT 337 x10e3/uL (140-360); RED CELL DISTRIBUTION WIDTH 15.4 % (11.7-14.4)
[2019-04-01 06:23] LABS: ANION GAP 16.2 mmol/L (8-16); CALCIUM 10.4 mg/dL (8.4-10.2); CREATININE, SERUM 2.06 mg/dL (0.72-1.25); POTASSIUM 4.2 mmol/L (3.5-5.1)
[2019-04-01] MEDS: IPRATROPIUM BROMIDE 0.02% 2.5 ML NEB NEB SCH ×3 (06:45→19:47)
[2019-04-01] MEDS: LORATADINE 10 MG TAB PO SCH (08:43)
[2019-04-01] MEDS: ASPIRIN 81 MG CHEW TAB PO SCH (08:43)
[2019-04-01] MEDS: DOCUSATE SODIUM 100 MG CAP PO SCH ×2 (08:43→16:48)
[2019-04-01] MEDS: METOPROLOL TARTRATE 25 MG TAB PO SCH ×2 (08:55→16:48)
[2019-04-01] MEDS: FAMOTIDINE 20 MG/2 ML VIAL IV SCH (08:55)
[2019-04-01] MEDS: BALSAM PERU/CASTOR OIL 60 GM OINT...G. TP SCH ×2 (08:55→20:12)
[2019-04-01] MEDS: FUROSEMIDE INJ 10 MG/ML 4 ML VIAL IV SCH (08:55)
[2019-04-01] MEDS: CEFEPIME 1GM/NS 0.9% 50 ML 50 ML IV SCH (08:55)
[2019-04-01] MEDS: VANCOMYCIN 750MG/NS 150ML IVPB 150 ML IV SCH ×2 (09:50→22:10)
--- NOTE | 2019-04-01 13:18 | Progress Note ---
DATE: 04/01/2019 Psychiatric Progress Note SUBJECTIVE: The patient evaluated and events noted. The patient is doing better. He is sitting up in the chair. is in the room. The patient is calm and cooperative. He has a good appetite. As per the nurse, the patient slept well yesterday. states that he is intermittently confused and in no delusion. He has not received any p.r.n. IM medication. He is getting his scheduled medication. No serious side effects seen. ASSESSMENT: 1. Unspecified psychosis/delirium, improved. 2. Rule out dementia. PLAN: 1. To continue with Remeron 15 mg p.o. at bedtime. 2. Continue Risperdal 0.5 mg p.o. at bedtime. 3. Continue Risperdal p.r.n. 4. Continue Haldol p.r.n. IM. 5. Monitor for agitation and mood. 6. Supportive therapy. Dictated by Laine Rondon PA-C Chacorta Rahman MD QTV/MODL /[id number]
--- NOTE | 2019-04-01 13:21 | NUR ---
SPOKE WITH FLORI JEAN AT [facility] WHO STATES INSURANCE TOLD THEM TODAY THAT THEY NEVER ISSUED AN OFFICIAL DENIAL SO THE APPEAL THAT WAS SENT BY [facility] HAS TO BE RE-ISSUED TODAY AND WILL TAKE ANOTHER 3-5 DAYS FOR DETERMINATION [address] Meri KOCH CANCEL LTAC EVAL AND INITIATE SNF FLORI WITH [facility] NOTIFIED OF DC LTAC EVAL ORDERS FOR SNF AND TRANSFER WHEN ACCEPTED SPOKE WITH DTKatina CLARK AND PT'S ON SPEAKER PHONE SHE UNDERSTANDS PLAN AND WILL GO LOOK AT [facility] TOMORROW AND CALL LURDES DUARTE WITH CHOICE
--- NOTE | 2019-04-01 14:17 | NUR ---
CALLED AND SPOKE WITH DAUGHTER PER REQUEST ABOUT SNF, GAVE DR RECOMMENDATIONS AND THE ONES IN NETWORK, SPOKE ABOUT BENEFITS AND DISADVANTAGES OF CONTINUING WITH SAME DR OR GOING TO [facility], DAUGHTER EDUARDO STATES SHE WILL GO LOOK AT [facility] AND [facility]
[2019-04-01] MEDS: RIVAROXABAN 15 MG TABLET PO SCH (16:48)
--- NOTE | 2019-04-01 19:02 | NUR ---
WALKING ROUNDS PERFORMED, RECEIVED PT LAYING SEMI FOWLERS IN BED, AAOX3, RR EVEN AND NON-LABORED, O2 BY NC AT 2L. NO S/SX OF DISTRESS NOTED. LEFT PT LAYING SEMI FOWLERS IN BED, BED IN LOW LOCKED POSITION, SIDE RAILS UPX2, CALL LIGHT AND PHONE WITHIN REACH. FAMILY AT BEDSIDE. Addendum: 04/01/19 at 2043 by Yanci Ng RN PT IS AAOX1.
--- NOTE | 2019-04-01 20:10 | NUR ---
PT CONFUSED AND GETTING OUT OF BED. ORIENTED PT TO HOSPITAL STAY, APPLIED WARM BLANKETS TO PATIENT AND REPOSITIONED IN BED FOR COMFORT.
[2019-04-01] MEDS: RISPERIDONE 0.5 MG TAB PO SCH (20:12)
[2019-04-01] MEDS: MIRTAZAPINE 15 MG TAB PO SCH (20:12)
[2019-04-02] VITALS (7 sets, daily range): BP systolic 84–125; BP diastolic 54–63
--- NOTE | 2019-04-02 00:32 | Progress Note ---
DATE: 04/01/2019 Cardiology Progress Note SUBJECTIVE: The patient denies chest pain or shortness of breath. OBJECTIVE: VITAL SIGNS: Temperature 97.2 degrees, pulse 80, respiratory rate 19, blood pressure 84/62, and oxygen saturation 96% on 2 L nasal cannula. GENERAL: An elderly man, chronically ill-appearing, awake and alert, in no acute distress, sitting up in chair. LUNGS: Clear to auscultation bilaterally. No wheezes or crackles. CARDIOVASCULAR: Normal rate. Irregularly irregular. Normal S1 and S2. ABDOMEN: Soft and nontender. EXTREMITIES: No edema. CARDIAC MEDICATIONS: Xarelto 15 mg p.o. daily, metoprolol tartrate 25 mg p.o. b.i.d., furosemide 40 mg IV daily, and aspirin 81 mg p.o. daily. LABORATORY DATA: WBC 10.31, hemoglobin 12.5, hematocrit 37.1, and platelets 337. Sodium 139, potassium 4.2, chloride 101, CO2 of 26, BUN 64, and creatinine 2.06. TELEMETRY: Atrial fibrillation. IMPRESSION: 1. Atrial fibrillation, status post permanent pacemaker. 2. Iuwsx-jl-rneiyet systolic heart failure. 3. Pneumonia. 4. Sepsis. 5. Nhtez-yy-nwznaxp kidney disease, improving. 6. Acute liver injury. RECOMMENDATIONS: Continue Xarelto for CVA prophylaxis. Monitor for signs and symptoms of bleeding. Keep the patient off amiodarone at this time due to elevated LFTs. Monitor closely on telemetry. Continue current cardiac medications. Monitor creatinine. Replete electrolytes. Antibiotics per primary service. Thank you for this consult. We will continue to follow. Fabiola Miranda MD ABS/MODL /[id number]
--- NOTE | 2019-04-02 02:43 | NUR ---
Pulmonary Medicine DATE 04/01/2019 SUBJECTIVE: ate well sat up, BM+ 2 L/min oxygen REVIEW OF SYSTEMS: no seizures, no headaches PHYSICAL EXAMINATION: VITAL SIGNS: vital signs noted and reviewed per the chart record. GENERAL: no acute distress, alert , Appears weak HEENT: Normocephalic, atraumatic. NECK: Supple. Throat midline. LUNGS: Bilateral air entry is moderate, rare rhonchi noted. CARDIOVASCULAR: S1 and S2. No murmurs, rubs, or gallops. ABDOMEN: Soft and nontender. EXTREMITIES: No clubbing. No cyanosis. no edema. INTEGUMENT: No rash. No purpura. LABORATORY DATA: cr 2.06, k 4.2 IMPRESSION AND PLAN: 1. Pneumonia. Probable Gram negative pneumonia, Acquired prior to admit. 2. Hypoxemia, under evaluation. 3. Debility/weakness. 4. Hx of coronary artery disease 5. acute/chronic systolic heart failure. 5. Hx deep venous thrombosis and pulmonary embolism. 6. Hypertension. 7. Hx CVA with right hemiparesis 8. elevated LFTs 9. CKD III-IV Repeat intermittent chest x-ray. follow kidney function Supplement oxygen, wean as tolerated Antibiotics. Bronchodilators prn Aggressive PT and OT continue, mobilize behavioral +/- medication measures to avoid sundowning avoid hepatotoxins, LFTs better Thank you very much, Dr. Ortiz. Please call for questions.
[2019-04-02 05:48] LABS: BASOPHILS # (AUTO) 0.1 (0.0-0.1); BASOPHILS % 0.8 % (0.0-1.0); EOSINOPHILS # (AUTO) 0.3 (0.0-0.4); EOSINOPHILS % 3.5 % (0.0-6.0); HEMATOCRIT 36.5 % (38.2-49.6); HEMOGLOBIN 12.4 g/dL (14.0-18.0); LYMPHOCYTES # (AUTO) 1.4 (1.0-3.2); LYMPHOCYTES % 16.5 % (18.0-39.1); MEAN CORPUSCULAR HEMOGLOBIN 30.9 pg (28-32); MONOCYTES # (AUTO) 0.7 (0.2-0.8); MONOCYTES % 8.3 % (4.4-11.3); NEUTROPHILS # (AUTO) 5.8 (2.1-6.9); NEUTROPHILS % 68.8 % (38.7-80.0); PLATELET COUNT 353 x10e3/uL (140-360); RED BLOOD COUNT 4.01 x10e6/uL (4.3-5.7); RED CELL DISTRIBUTION WIDTH 15.3 % (11.7-14.4)
[2019-04-02 06:06] LABS: ANION GAP 16.8 mmol/L (8-16); CALCIUM 10.6 mg/dL (8.4-10.2); CREATININE, SERUM 2.32 mg/dL (0.72-1.25); POTASSIUM 3.8 mmol/L (3.5-5.1)
[2019-04-02] MEDS: IPRATROPIUM BROMIDE 0.02% 2.5 ML NEB NEB SCH ×3 (06:13→19:30)
--- NOTE | 2019-04-02 07:30 | NUR ---
The pt. was received from the off-going nurse and is in bed awake and responsive to verbal stimuli. Side rails are up times four at the family's request.
[2019-04-02] MEDS ORDERED: FUROSEMIDE 40 MG TAB PO SCH (09:00)
[2019-04-02] MEDS: ASPIRIN 81 MG CHEW TAB PO SCH (09:10)
[2019-04-02] MEDS: LORATADINE 10 MG TAB PO SCH (09:10)
[2019-04-02] MEDS: FAMOTIDINE 20 MG/2 ML VIAL IV SCH (09:10)
[2019-04-02] MEDS: DOCUSATE SODIUM 100 MG CAP PO SCH ×2 (09:10→17:51)
[2019-04-02] MEDS: METOPROLOL TARTRATE 25 MG TAB PO SCH ×2 (09:10→17:54)
[2019-04-02] MEDS: BALSAM PERU/CASTOR OIL 60 GM OINT...G. TP SCH ×2 (09:11→20:52)
--- NOTE | 2019-04-02 09:50 | NUR ---
SPOKE WITH DAUGHTER EDUARDO SHE WANTS CLINICALS SENT TO [facility], EDUCATED ABOUT IMM GOT VERBAL UNDERSTANDING OVER PHONE.
[2019-04-02] MEDS: CEFEPIME 1GM/NS 0.9% 50 ML 50 ML IV SCH (10:43)
[2019-04-02] MEDS: VANCOMYCIN 750MG/NS 150ML IVPB 150 ML IV SCH ×2 (10:44→22:00)
--- NOTE | 2019-04-02 14:27 | NUR ---
Follow up Note RD Recommendation for Physician: Continue diet as ordered Plan of Care: RD following, monitoring for tolerance and adequacy Nutrition reason for involvement: follow up Primary Diagnose(s):Dyspnea, Hypoxia, Weakness PMH: CVA, CKD stage 3, CAD, CHF, Afib, HTN Ht:72 in Wt: 200 lbs (03/22) 193lb BMI:27.1 kg/m2 IBW:178lb RD Assessment: (04/02/19). Follow up. Spoke to family member and pt. Family member reported pt ate all of his breakfast this morning and has been drinking Ensure. Per chart, pt consumed 50-100% of meals yesterday and 75% on 03/31. No N/V noted or chewing/swallowing issues. Pt and family member did not have any questions. Will continue to monitor. (03/27/19) Chart reviewed. Labs and meds reviewed. Initial encounter with patient. Pt did not participate much due to being tired. Family states pt had a rough night. Pt with a Poor Po intake today and he only ate about 25% of breakfast. Pt did drink an Ensure Enlive. Family states that he drinks one with each meal when at home and that they requested that the nurse give the Pt an Ensure Enlive. Pt wears dentures, but denies any difficulty chewing or swallowing, N,V,D. Pt needs assist with meals due to right sided weakness. Pt is right hand dominate. No known food allergies. Current Diet: Cardiac diet Malnutrition Evaluation (03/27/19) The patient does not meet criteria for a specified degree of malnutrition at this time. Will re-evaluate at follow-up as appropriate. Diet Education Needs Assessment: Diet education not indicated. Nutrition Care Level: Low Signed: Rukhsana Burgos, RD, LD
--- NOTE | 2019-04-02 15:30 | NUR ---
The pt. became confused and disoriented and is taking off his clothing and trying to get out of bed. He is also tugging at the iv. He has been calm and cooperative all day until this time. He was given a dose of haldol.
--- NOTE | 2019-04-02 16:11 | NUR ---
FACILITY CALLED NO PT NOTES WERE IN PACKET, PRINTED AND FAXED TO BUILDING.
[2019-04-02] MEDS: RIVAROXABAN 15 MG TABLET PO SCH (17:54)
--- NOTE | 2019-04-02 18:23 | Progress Note ---
DATE: 04/02/2019 SUBJECTIVE: The patient denies chest pain or shortness of breath. OBJECTIVE: VITAL SIGNS: Temperature 97.5 degrees, pulse 81, respiratory rate 16, blood pressure 84/55, oxygen saturation 95% on 2 L nasal cannula. GENERAL: Elderly man, chronically ill-appearing, awake, alert, in no acute distress. LUNGS: Clear to auscultation bilaterally. No wheezes or crackles. CARDIOVASCULAR: Normal rate. Irregularly irregular. Normal S1, S2. ABDOMEN: Soft, nontender. EXTREMITIES: No edema. CARDIAC MEDICATIONS: 1. Metoprolol tartrate 25 mg p.o. b.i.d. 2. Aspirin 81 mg p.o. daily. 3. Xarelto 15 mg p.o. daily. LABORATORY DATA: WBC 8.46, hemoglobin 12.4, hematocrit 36.5, platelets 353. Sodium 144, potassium 3.8, chloride 102, CO2 29, BUN 64, creatinine 2.32. TELEMETRY: Atrial fibrillation. IMPRESSION: 1. Atrial fibrillation, status post permanent pacemaker. 2. Dsvez-nn-qixkibd systolic heart failure. 3. Pneumonia. 4. Sepsis. 5. Acute on chronic kidney disease. 6. Acute liver injury. RECOMMENDATIONS: Continue Xarelto for CVA for prophylaxis and monitor creatinine closely. Monitor for signs and symptoms of bleeding. We will keep the patient off amiodarone at this time due to elevated LFTs. Monitor patient on telemetry. Continue current cardiac medications otherwise. Replete electrolytes. Antibiotics per primary service. PT as tolerated. Thank you for this consult. We will continue to follow. Fabiola Miranda MD ABS/MODL /[id number]
[2019-04-02] MEDS: ALBUTEROL SULF 0.083% NEB SOLN 3 ML NEB NEB PRN (19:30)
[2019-04-02] MEDS: MIRTAZAPINE 15 MG TAB PO SCH (20:52)
[2019-04-02] MEDS: RISPERIDONE 0.5 MG TAB PO SCH (20:52)
--- NOTE | 2019-04-02 21:20 | NUR ---
Pulmonary Medicine DATE 04/02/2019 SUBJECTIVE: ate well 2 L/min oxygen voided slept ok REVIEW OF SYSTEMS: no seizures, no headaches PHYSICAL EXAMINATION: VITAL SIGNS: vital signs noted and reviewed per the chart record. GENERAL: no acute distress, alert , Appears weak HEENT: Normocephalic, atraumatic. NECK: Supple. Throat midline. LUNGS: Bilateral air entry is moderate, rare rhonchi noted. CARDIOVASCULAR: S1 and S2. No murmurs, rubs, or gallops. ABDOMEN: Soft and nontender. EXTREMITIES: No clubbing. No cyanosis. no edema. INTEGUMENT: No rash. No purpura. LABORATORY DATA: cr 2.32, k 3.8 IMPRESSION AND PLAN: 1. Pneumonia. Probable Gram negative pneumonia, Acquired prior to admit. 2. Hypoxemia, under evaluation. 3. Debility/weakness. 4. Hx of coronary artery disease 5. acute/chronic systolic heart failure. 5. Hx deep venous thrombosis and pulmonary embolism. 6. Hypertension. 7. Hx CVA with right hemiparesis 8. elevated LFTs 9. CKD III-IV Repeat intermittent chest x-ray. follow kidney function Supplement oxygen, wean as tolerated Antibiotics. Bronchodilators prn Aggressive PT and OT continue, mobilize behavioral +/- medication measures to avoid sundowning avoid hepatotoxins, LFTs better Thank you very much, Dr. Ortiz. Please call for questions.
--- NOTE | 2019-04-02 22:21 | NUR ---
SPOKE TO DR. GIBSON REGARDING HEMOGLOBIN READING 8.3. SAID NOT TO GIVE BLOOD AT THIS TIME AND RECHECK HH IN THE MORNING. Addendum: 04/02/19 at 2224 by Max Pruitt RN WRONG PATIENT
--- NOTE | 2019-04-02 22:28 | NUR ---
PAGED DR. KOCH REGARDING VANCO TROUGH RESULT. AWAITING CALL BACK
--- NOTE | 2019-04-02 22:53 | NUR ---
RE-PAGED DR. KOCH REGARDING VANCO TROUGH. AWAITING CALL BACK
--- NOTE | 2019-04-02 23:45 | NUR ---
SPOKE TO DR. KOCH AT THIS TIME. SAID NOT TO GIVE THE DOSE FOR TONIGHT AND TO RECHECK VANCO TROUGH TOMORROW.
[2019-04-03] VITALS (8 sets, daily range): BP systolic 92–120; BP diastolic 63–84
[2019-04-03 06:14] LABS: ANION GAP 17.2 mmol/L (8-16); CREATININE, SERUM 2.44 mg/dL (0.72-1.25); POTASSIUM 4.2 mmol/L (3.5-5.1)
[2019-04-03] MEDS: ALBUTEROL SULF 0.083% NEB SOLN 3 ML NEB NEB PRN ×2 (07:15→20:15)
[2019-04-03] MEDS: IPRATROPIUM BROMIDE 0.02% 2.5 ML NEB NEB SCH ×3 (07:15→20:15)
--- NOTE | 2019-04-03 07:15 | NUR ---
received pt from previous shift, resting in bed, daughter at bedside
[2019-04-03] MEDS: ASPIRIN 81 MG CHEW TAB PO SCH (08:38)
[2019-04-03] MEDS: LORATADINE 10 MG TAB PO SCH (08:38)
[2019-04-03] MEDS: CEFEPIME 1GM/NS 0.9% 50 ML 50 ML IV SCH (08:38)
[2019-04-03] MEDS: FAMOTIDINE 20 MG/2 ML VIAL IV SCH (08:38)
[2019-04-03] MEDS: METOPROLOL TARTRATE 25 MG TAB PO SCH ×2 (08:38→16:38)
[2019-04-03] MEDS: DOCUSATE SODIUM 100 MG CAP PO SCH ×2 (08:38→16:33)
[2019-04-03] MEDS ORDERED: SODIUM CHLORIDE 0.9% 1000ML 1,000 ML IV SCH (09:00)
[2019-04-03] MEDS: VANCOMYCIN 750MG/NS 150ML IVPB 150 ML IV SCH (10:00)
[2019-04-03] MEDS: BALSAM PERU/CASTOR OIL 60 GM OINT...G. TP SCH ×2 (10:02→20:46)
--- NOTE | 2019-04-03 10:15 | NUR ---
Notified Dr Ortiz via phone of pt Vanco trough 15.5. Dr Ortiz states to place vancomycin on hold at time.
--- NOTE | 2019-04-03 12:11 | NUR ---
Pulmonary Medicine DATE 04/03/2019 SUBJECTIVE: ate well sat up in chair 2 L/min oxygen REVIEW OF SYSTEMS: no seizures, no headaches PHYSICAL EXAMINATION: VITAL SIGNS: vital signs noted and reviewed per the chart record. GENERAL: no acute distress, alert , Appears weak HEENT: Normocephalic, atraumatic. NECK: Supple. Throat midline. LUNGS: Bilateral air entry is moderate, rare rhonchi noted. CARDIOVASCULAR: S1 and S2. No murmurs, rubs, or gallops. ABDOMEN: Soft and nontender. EXTREMITIES: No clubbing. No cyanosis. no edema. INTEGUMENT: No rash. No purpura. LABORATORY DATA: cr 2.44. IMPRESSION AND PLAN: 1. Pneumonia. Probable Gram negative pneumonia, Acquired prior to admit. 2. Hypoxemia, under evaluation. 3. Debility/weakness. 4. Hx of coronary artery disease 5. acute/chronic systolic heart failure. 5. Hx deep venous thrombosis and pulmonary embolism. 6. Hypertension. 7. Hx CVA with right hemiparesis 8. elevated LFTs 9. CKD III Repeat intermittent chest x-ray. follow kidney function Supplement oxygen, wean as tolerated Antibiotics. Bronchodilators prn Aggressive PT and OT continue, mobilize behavioral +/- medication measures to avoid sundowning avoid hepatotoxins, LFTs better Thank you very much, Dr. Ortiz. Please call for questions.
[2019-04-03] MEDS: RIVAROXABAN 15 MG TABLET PO SCH (16:34)
--- NOTE | 2019-04-03 17:34 | Progress Note ---
DATE: 04/03/2019 Cardiology Progress Note Mr. Dalton he is communicate and denies any chest pain or shortness of breath. His care was discussed with his family. PHYSICAL EXAMINATION: VITAL SIGNS: Afebrile, heart rate 78, blood pressure is 98/70, and O2 saturation is 95%. CARDIOVASCULAR: Irregularly irregular rhythm. Systolic murmur. LUNGS: Clear to auscultation. ABDOMEN: Soft. MEDICATIONS: Reviewed. LABORATORY DATA: An EKG shows atrial fibrillation and paced rhythm. ASSESSMENT: 1. Cpnaz-sd-[id number] systolic heart failure. 2. Atrial fibrillation, status post permanent pacemaker placement. RECOMMENDATIONS: The patient is on appropriate cardiac medications. Heart rate and rhythm murmur well controlled. Xarelto and aspirin for anticoagulation. Continue intensive. MD SUZETTE Pope/LINDSEY /[id number]
[2019-04-03] MEDS: RISPERIDONE 0.5 MG TAB PO PRN (18:39)
--- NOTE | 2019-04-03 19:05 | NUR ---
report given to next shift, pt resting in bed, family at bedside
[2019-04-03] MEDS: MIRTAZAPINE 15 MG TAB PO SCH (20:46)
[2019-04-03] MEDS: RISPERIDONE 0.5 MG TAB PO SCH (22:44)
[2019-04-04] VITALS (7 sets, daily range): BP systolic 105–119; BP diastolic 54–80
[2019-04-04 06:28] LABS: BASOPHILS # (AUTO) 0.1 (0.0-0.1); BASOPHILS % 1.1 % (0.0-1.0); EOSINOPHILS # (AUTO) 0.3 (0.0-0.4); EOSINOPHILS % 3.9 % (0.0-6.0); HEMATOCRIT 37.4 % (38.2-49.6); HEMOGLOBIN 12.2 g/dL (14.0-18.0); LYMPHOCYTES # (AUTO) 1.4 (1.0-3.2); LYMPHOCYTES % 22.1 % (18.0-39.1); MEAN CORPUSCULAR HEMOGLOBIN 30.7 pg (28-32); MEAN CORPUSCULAR HGB CONC 32.6 g/dL (31-35); MONOCYTES # (AUTO) 0.5 (0.2-0.8); MONOCYTES % 7.2 % (4.4-11.3); NEUTROPHILS # (AUTO) 4.1 (2.1-6.9); NEUTROPHILS % 64.8 % (38.7-80.0); PLATELET COUNT 282 x10e3/uL (140-360); RED BLOOD COUNT 3.98 x10e6/uL (4.3-5.7); RED CELL DISTRIBUTION WIDTH 15.6 % (11.7-14.4)
[2019-04-04 06:46] LABS: ANION GAP 17.1 mmol/L (8-16); CALCIUM 10.6 mg/dL (8.4-10.2); CREATININE, SERUM 2.31 mg/dL (0.72-1.25); POTASSIUM 4.1 mmol/L (3.5-5.1)
[2019-04-04] MEDS: IPRATROPIUM BROMIDE 0.02% 2.5 ML NEB NEB SCH ×3 (07:26→23:30)
[2019-04-04] MEDS ORDERED: SODIUM CHLORIDE 0.9% 1000ML 1,000 ML IV SCH (07:45)
[2019-04-04] MEDS: METOPROLOL TARTRATE 25 MG TAB PO SCH ×2 (08:30→16:40)
[2019-04-04] MEDS: CEFEPIME 1GM/NS 0.9% 50 ML 50 ML IV SCH (08:30)
[2019-04-04] MEDS: FAMOTIDINE 20 MG/2 ML VIAL IV SCH (08:30)
[2019-04-04] MEDS: ASPIRIN 81 MG CHEW TAB PO SCH (08:30)
[2019-04-04] MEDS: LORATADINE 10 MG TAB PO SCH (08:30)
[2019-04-04] MEDS: DOCUSATE SODIUM 100 MG CAP PO SCH ×2 (08:30→16:40)
[2019-04-04] MEDS: BALSAM PERU/CASTOR OIL 60 GM OINT...G. TP SCH ×2 (09:15→19:51)
--- NOTE | 2019-04-04 13:51 | NUR ---
Pulmonary Medicine DATE 04/04/2019 SUBJECTIVE: 2 L/min oxygen ate some no BM today walked few steps REVIEW OF SYSTEMS: no seizures, no headaches PHYSICAL EXAMINATION: VITAL SIGNS: vital signs noted and reviewed per the chart record. GENERAL: no acute distress, alert, appears weak HEENT: Normocephalic, atraumatic. NECK: Supple. Throat midline. LUNGS: Bilateral air entry is moderate, rare rhonchi noted. CARDIOVASCULAR: S1 and S2. No murmurs, rubs, or gallops. ABDOMEN: Soft and nontender. EXTREMITIES: No clubbing. No cyanosis. no edema. INTEGUMENT: No rash. No purpura. LABORATORY DATA: cr 2.31, wbc 6.38 IMPRESSION AND PLAN: 1. Pneumonia. Probable Gram negative pneumonia, Acquired prior to admit. 2. Hypoxemia, under evaluation. 3. Debility/weakness. 4. Hx of coronary artery disease 5. acute/chronic systolic heart failure. 5. Hx deep venous thrombosis and pulmonary embolism. 6. Hypertension. 7. Hx CVA with right hemiparesis 8. elevated LFTs 9. CKD III Repeat intermittent chest x-ray. follow kidney function Supplement oxygen, wean as tolerated Antibiotics, adjust if needed. Bronchodilators prn Aggressive PT and OT continue, mobilize behavioral +/- medication measures to avoid recheck LFTs Thank you very much, Dr. Ortiz. Please call for questions.
--- NOTE | 2019-04-04 14:01 | Progress Note ---
DATE: 04/04/2019 Cardiology Progress Note SUBJECTIVE: Mr. Dalton has had some confusion. Care was discussed with his family. Telemetry shows atrial fibrillation with bundle branch block. PHYSICAL EXAMINATION: VITAL SIGNS: Afebrile, heart rate is 82, and blood pressure is 107/59. CARDIOVASCULAR: Irregularly irregular rhythm. Systolic murmur. LUNGS: Decreased breath sounds. MEDICATIONS: Reviewed. LABORATORY DATA: Hemoglobin is 12.2. Serum creatinine is 2.3, which is stable for the patient. ASSESSMENT: 1. Zgjiq-iy-kkkvkdf systolic heart failure. 2. Atrial fibrillation. RECOMMENDATIONS: Aspirin and Xarelto for anticoagulation. The patient's heart rate is well controlled. Borderline blood pressures. No further titration of beta-celestine. The patient is cleared for transfer to a [facility] facility. MD SUZETTE Pope/JOSEL /[id number]
[2019-04-04] MEDS: RISPERIDONE 0.5 MG TAB PO PRN (14:07)
[2019-04-04] MEDS: RIVAROXABAN 15 MG TABLET PO SCH (16:40)
[2019-04-04] MEDS: RISPERIDONE 0.5 MG TAB PO SCH (20:32)
[2019-04-04] MEDS: MIRTAZAPINE 15 MG TAB PO SCH (20:32)
[2019-04-05] VITALS (8 sets, daily range): BP systolic 102–137; BP diastolic 66–85
[2019-04-05 06:04] LABS: ANION GAP 15.2 mmol/L (8-16); CALCIUM 10.3 mg/dL (8.4-10.2); CREATININE, SERUM 2.2 mg/dL (0.72-1.25); POTASSIUM 4.2 mmol/L (3.5-5.1)
[2019-04-05] MEDS: ALBUTEROL SULF 0.083% NEB SOLN 3 ML NEB NEB PRN (06:55)
[2019-04-05] MEDS: IPRATROPIUM BROMIDE 0.02% 2.5 ML NEB NEB SCH ×3 (06:55→22:00)
--- NOTE | 2019-04-05 07:00 | NUR ---
Received patient lying in bed with eyes closed. Respiration even and unlabored without SOB. at bedside. Call light in reach.
[2019-04-05] MEDS: ASPIRIN 81 MG CHEW TAB PO SCH (08:58)
[2019-04-05] MEDS: DOCUSATE SODIUM 100 MG CAP PO SCH ×2 (08:58→17:47)
[2019-04-05] MEDS: LORATADINE 10 MG TAB PO SCH (08:58)
[2019-04-05] MEDS: FAMOTIDINE 20 MG/2 ML VIAL IV SCH ×2 (08:58→09:01)
[2019-04-05] MEDS: METOPROLOL TARTRATE 25 MG TAB PO SCH ×2 (08:59→17:47)
[2019-04-05] MEDS: BALSAM PERU/CASTOR OIL 60 GM OINT...G. TP SCH ×2 (08:59→22:34)
[2019-04-05] MEDS: CEFEPIME 1GM/NS 0.9% 50 ML 50 ML IV SCH (09:01)
--- NOTE | 2019-04-05 09:24 | NUR ---
updated clinicals given to Jessica with [facility].
--- NOTE | 2019-04-05 11:00 | NUR ---
Spoke with Keena [phone], [phone], and informed her more clinical info was given to the rep. Discussion about medications had with Keena. She is also requesting a private room. [facility] to follow up this afternoon
--- NOTE | 2019-04-05 13:47 | NUR ---
Per Jessica, insurance has received clinicals, just waiting on answer now.
[2019-04-05] MEDS: RIVAROXABAN 15 MG TABLET PO SCH (17:47)
--- NOTE | 2019-04-05 19:00 | NUR ---
RECEIVED PATIENT IN BEDSIDE REPORT. FAMILY MEMBERS AT BEDSIDE. PATIENT CONFUSED, BUT NOT AGITATED. PATIENT IS SMILING. BREATHING EVEN AND UNLABORED. NO S&S OF DISTRESS NOTED. IV TO R WRIST ASYMPTOMATIC, INTACT, AND PATENT. TELE MONITOR ON. BED PUMP ACTIVE. SKIN INTACT. BED LOCKED IN LOWEST POSITION, SIDE RAILS UPX3 (PER FAMILY MEMBER REQUEST), CALL LIGHT IN REACH. WILL CONTINUE TO MONITOR CLOSELY.
--- NOTE | 2019-04-05 19:00 | NUR ---
Report given to frame assembler. Respiration even and unlabored without SOB. Family at bedside. Call light in reach.
--- NOTE | 2019-04-05 21:00 | NUR ---
Pulmonary Medicine DATE 04/05/2019 SUBJECTIVE: 2 L/min oxgyen No BM walking with assist eating small/ fair amounts REVIEW OF SYSTEMS: no seizures, no headaches PHYSICAL EXAMINATION: VITAL SIGNS: vital signs noted and reviewed per the chart record. GENERAL: no acute distress, alert, appears weak HEENT: Normocephalic, atraumatic. NECK: Supple. Throat midline. LUNGS: Bilateral air entry is moderate, rare rhonchi noted. CARDIOVASCULAR: S1 and S2. No murmurs, rubs, or gallops. ABDOMEN: Soft and nontender. EXTREMITIES: No clubbing. No cyanosis. no edema. INTEGUMENT: No rash. No purpura. LABORATORY DATA: cr 2.20 IMPRESSION AND PLAN: 1. Pneumonia. Probable Gram negative pneumonia, Acquired prior to admit. 2. Hypoxemia, under evaluation. 3. Debility/weakness. 4. Hx of coronary artery disease 5. acute/chronic systolic heart failure. 5. Hx deep venous thrombosis and pulmonary embolism. 6. Hypertension. 7. Hx CVA with right hemiparesis 8. elevated LFTs 9. CKD III Repeat intermittent chest x-ray. follow kidney function Supplement oxygen, wean as tolerated Antibiotics, adjust if needed. Bronchodilators prn Aggressive PT and OT continue, mobilize behavioral +/- medication measures to avoid recheck LFTs too ill for home, consider more therapy/rehab Thank you very much, Dr. Ortiz. Please call for questions.
[2019-04-05] MEDS: MIRTAZAPINE 15 MG TAB PO SCH (21:30)
[2019-04-05] MEDS: RISPERIDONE 0.5 MG TAB PO SCH (21:30)
[2019-04-06] VITALS (8 sets, daily range): BP systolic 98–120; BP diastolic 59–80
[2019-04-06] MEDS: IPRATROPIUM BROMIDE 0.02% 2.5 ML NEB NEB SCH ×3 (07:20→23:00)
[2019-04-06] MEDS: FAMOTIDINE 20 MG/2 ML VIAL IV SCH (08:59)
[2019-04-06] MEDS: DOCUSATE SODIUM 100 MG CAP PO SCH ×2 (08:59→16:55)
[2019-04-06] MEDS: LORATADINE 10 MG TAB PO SCH (08:59)
[2019-04-06] MEDS: ASPIRIN 81 MG CHEW TAB PO SCH (08:59)
[2019-04-06] MEDS: METOPROLOL TARTRATE 25 MG TAB PO SCH ×2 (09:00→16:56)
[2019-04-06] MEDS: BALSAM PERU/CASTOR OIL 60 GM OINT...G. TP SCH ×2 (09:00→21:22)
--- NOTE | 2019-04-06 09:09 | NUR ---
The pt. is up in the chair for morning meal and has no issues or concerns at this time. The family is at the bedside.
--- NOTE | 2019-04-06 10:12 | NUR ---
Call placed to Erin at [facility] MCR
--- NOTE | 2019-04-06 10:57 | NUR ---
FACILITY REQUESTING NURSES NOTES, FAXED TO [facility]ILD[facility].
[2019-04-06] MEDS ORDERED: CITRATE OF MAGNESIA 300ML BOTTLE PO ONE (11:00)
--- NOTE | 2019-04-06 15:24 | NUR ---
[facility] DISCHARGE INFORMATION PATIENT HAS BEEN ACCEPTED TO: NAME: CAROLE CEBALLOS ADDRESS: [id number] [place] [address] [place] ACCEPTING INDUSTRIAL REAL ESTATE AGENT:JAVED KLEIN MD: DR KOCH ROOM: [address]B NURSE CALL REPORT TO: [phone] IMM SIGNED AND OBTAINED (if applicable): YES THE FOLLOWING DOCUMENTS MUST ACCOMPANY PATIENT FOR TRANSFER: COPIED CHART: CLINICAL
--- NOTE | 2019-04-06 15:57 | NUR ---
Report called to Nicky at [facility].
[2019-04-06] MEDS: RIVAROXABAN 15 MG TABLET PO SCH (16:56)
--- NOTE | 2019-04-06 18:36 | NUR ---
The perinatal social worker called to place a hold on the transfer to [facility] until he morning due to the ambulance none arrival. The pt. is to be picked up in the morning at 0700 and transported to [facility]
--- NOTE | 2019-04-06 19:00 | NUR ---
WALKING ROUNDS PERFORMED, RECEIVED PT LAYING SEMI FOWLERS IN BED, AAOX2, RR EVEN AND NON-LABORED, O2 BY NC AT 2.5L. NO S/SX OF DISTRESS NOTED. LEFT PT LAYING SEMI FOWLERS IN BED, BED IN LOW LOCKED POSITION, SIDE RAILS UPX2, CALL LIGHT AND PHONE WITHIN REACH. FAMILY AT BEDSIDE.
--- NOTE | 2019-04-06 20:23 | NUR ---
Pulmonary Medicine DATE 04/06/2019 SUBJECTIVE: mod assist to walk 2 L/min oxygen AMS slept at 3 am some persistent delirium REVIEW OF SYSTEMS: no seizures, no headaches PHYSICAL EXAMINATION: VITAL SIGNS: vital signs noted and reviewed per the chart record. GENERAL: no acute distress, alert, weak HEENT: Normocephalic, atraumatic. NECK: Supple. Throat midline. LUNGS: Bilateral air entry is moderate, rare rhonchi noted. CARDIOVASCULAR: S1 and S2. No murmurs, rubs, or gallops. ABDOMEN: Soft and nontender. EXTREMITIES: No clubbing. No cyanosis. no edema. INTEGUMENT: No rash. No purpura. LABORATORY DATA: cr 2.20 IMPRESSION AND PLAN: 1. Pneumonia. Probable Gram negative pneumonia, Acquired prior to admit. 2. Hypoxemia, under evaluation. 3. Debility/weakness. 4. Hx of coronary artery disease 5. acute/chronic systolic heart failure. 5. Hx deep venous thrombosis and pulmonary embolism. 6. Hypertension. 7. Hx CVA with right hemiparesis 8. elevated LFTs 9. CKD III Repeat intermittent chest x-ray. follow kidney function Supplement oxygen, wean as tolerated Antibiotics, adjust if needed. Bronchodilators prn Aggressive PT and OT continue, mobilize behavioral +/- medication measures to avoid Recheck LFTs too ill for home, consider more therapy/rehab Thank you very much, Dr. Ortiz. Please call for questions.
[2019-04-06] MEDS: MIRTAZAPINE 15 MG TAB PO SCH (21:07)
[2019-04-06] MEDS: RISPERIDONE 0.5 MG TAB PO SCH (21:07)
[2019-04-07] VITALS: BP 120/64
[2019-04-07 04:00] VITALS: BP 110/61
--- NOTE | 2019-04-07 07:10 | NUR ---
IV REMOVED BY Carlos KESSLER RN, MUSIC EDUCATION DIRECTOR REMOVED AND RETURNED TO TELEMETRY.
--- NOTE | 2019-04-07 07:13 | NUR ---
ATTEMPT TO CALL [facility] FOR UPDATES ON PATIENT TRANSFER. NO ANSWER, SPOKE WITH TIA GENERATOR ASSEMBLER, INFORMED TO TRANSFER PATIENT AND CONTINUE TO CALL [facility] FOR UPDATES ON PATIENT TRANSFER.
[2019-04-07] MEDS: IPRATROPIUM BROMIDE 0.02% 2.5 ML NEB NEB SCH (07:22)
--- NOTE | 2019-04-07 07:32 | NUR ---
PT TRANSFERRED BY EMS TO [facility]. PT BELONGINGS WITH FAMILY MEMBERS. PT IN STABLE CONDITION ON TRANSFER.
== END 2019-04-07 07:32 | DRG 871 ==
LOC: ER 09:41 → ERHOLD 10:03 → MED/SURG3 21:27 → IMCU 03-24 22:15 → MED/SURG 03-28 21:15
DX: A41.50 Gram-negative sepsis, unspecified (principal); J15.6 Pneumonia due to other Gram-negative bacteria; I50.23 Acute on chronic systolic (congestive) heart failure; N18.5 Chronic kidney disease, stage 5; N17.9 Acute kidney failure, unspecified; I69.351 Hemiplegia and hemiparesis following cerebral infarction affecting right dominant side; I13.0 Hypertensive heart and chronic kidney disease with heart failure and stage 1 through stage 4 chronic kidney disease, or unspecified chronic kidney disease; I11.0 Hypertensive heart disease with heart failure; Z86.718 Personal history of other venous thrombosis and embolism; Z79.01 Long term (current) use of anticoagulants; I25.10 Atherosclerotic heart disease of native coronary artery without angina pectoris; R09.02 Hypoxemia; N18.3 Chronic kidney disease, stage 3 (moderate); Z95.0 Presence of cardiac pacemaker; I48.91 Unspecified atrial fibrillation; I49.3 Ventricular premature depolarization; F03.90 Unspecified dementia, unspecified severity, without behavioral disturbance, psychotic disturbance, mood disturbance, and anxiety
CPT/HCPCS: 36415; 70450; 71045; 71046; 80048; 80053; 80162; 80202; 81001; 81015; 82550; 82553; 83690; 83735; 83880; 83970; 84100; 84156; 84300; 84443; 84484; 85025; 85610; 85730; 87040; 87086; 87400; 93005; 93306; 94640; 97139; 99285; J0456; J0692; J0696; J1160; J1630; J1940; J3370; J7030; J7050